=== PATIENT | female | born 1930 | race Caucasian/White ===

== ENCOUNTER 2017-01-03 17:04 | Observation (INO) ==
--- NOTE | 2017-01-03 17:50 | Emergency Department Note ---
Disposition Clinical Impression: UTI (urinary tract infection) Qualifiers: Urinary tract infection type: acute cystitis Hematuria presence: with hematuria Qualified Code(s): N30.01 - Acute cystitis with hematuria Disposition: Admitted As Inpatient Condition: Fair Referrals: Angel Lange CNP [Primary Care Provider] - Forms: ED Satisfaction Letter General Adult HPI - General Chief complaint: ED Urogenital-Female Stated complaint: UTI, DIZZINESS, SHORTNESS OF BREATH Time Seen by Provider: 01/03/17 17:22 Source: patient, family Mode of arrival: private vehicle Limitations: no limitations Nursing Notes Reviewed: Yes Vital Signs Reviewed: Yes - History of Present Illness HPI Narrative: He presents to the ED with complaint of UTI but is not getting better along with dizziness and shortness of breath. Patient daughter reports that patient gets frequent UTIs, at least once monthly and is on Bactrim prophylaxis. She was diagnosed with a UTI on December 17 and finished a 10 day course of Keflex. She felt better for a few days but then started feeling bad again over the weekend. She received a Rocephin shot yesterday at her PCPs office but is still not feeling better. Daughter states dizziness is always her first symptom when she has a UTI although she has had a history of dizziness in the past that has been investigated by ENT and other specialists with no definitive diagnosis.. Dizziness has been going on for the past 5 days. She also reports feeling short of breath for the past week but denies any congestion, sore throat or runny nose. She does have a chronic cough. Daughter states she has been diagnosed with chronic bronchitis but is not on any medications for it. She complains of some right flank pain. Denies any abdominal pain. No fever she does report chills. She reports urinary frequency but no dysuria. She does have some urinary incontinence. No nausea or vomiting. She does have chronic constipation and her last bowel movement was 3 days ago which is not unusual for her. Daughter states she has been in bed all weekend and has not been eating or drinking as much. She has been followed by Dr. Rodriguez of urology regarding her recurrent UTIs. Pain Scale: 0 - Related Data Home Medications Medication Instructions Recorded Confirmed Citalopram [CeleXA] 20 mg PO DAILY 12/22/14 01/03/17 Cyanocobalamin (B-12) [Vitamin B12] 0 mcg SQ QMONTH 12/22/14 01/03/17 Docusate [Colace] 100 mg PO DAILY 12/22/14 01/03/17 Pravastatin Sodium [Pravachol] 20 mg PO DAILY 12/22/14 01/03/17 Sulfamethoxazole/Trimeth DS 1 each PO DAILY 12/22/14 01/03/17 [Bactrim DS] Tolterodine LA (24 HR) [Detrol LA] 4 mg PO DAILY 12/22/14 01/03/17 Rivastigmine Tartrate (oral) 1.5 mg PO BID 01/03/17 01/03/17 [Exelon] amLODIPine [Norvasc] 5 mg PO DAILY 01/03/17 01/03/17 Allergies Allergy/AdvReac Type Severity Reaction Status Date / Time alcohol Allergy Swelling Verified 01/03/17 19:54 of Lip/Tongue/Throat ciprofloxacin [From Cipro] Allergy Hives Verified 01/03/17 19:54 morphine Allergy Rash Verified 01/03/17 19:54 nitrofurantoin Allergy Confusion Verified 01/03/17 19:54 [From Macrobid] Penicillins Allergy Anaphylaxis Verified 01/03/17 19:54 Constitutional: Reports: chills. Denies: fever, weakness, weight change Eyes: Denies: eye pain, eye discharge, vision change ENT ED: Denies: ear pain, throat pain, dental pain, hearing loss, epistaxis, congestion, dysphagia Cardiovascular: Denies: chest pain, palpitations, dyspnea on exertion, edema, syncope Respiratory: Reports: as per HPI (chronic), cough. Denies: dyspnea, wheezes, hemoptysis, stridor Gastrointestinal: Reports: constipation (chronic). Denies: abdominal pain, nausea, vomiting, diarrhea, hematemesis, melena, hematochezia Genitourinary: Reports: frequency. Denies: urgency, dysuria, hematuria, discharge Musculoskeletal: Denies: back pain, neck pain, arthralgia, myalgia Integumentary: Denies: rash, abrasion, lesions Neurological: Reports: as per HPI. Denies: headache, weakness, numbness, paresthesias, confusion, abnormal gait, vertigo Psychiatric: Denies: anxiety, depression, suicidal thoughts, homicidal thoughts , auditory hallucinations, visual hallucinations Endocrine: Denies: fatigue Hematological/Lymphatic: Denies: easy bleeding, easy bruising Allergic/Immunologic: Denies: facial swelling, urticaria Past Medical History - Past Medical History Medical history: Reports: hyperlipidemia, hypertension Surgical history: Reports: appendectomy, hysterectomy, knee replacement, orthopedic, other Psychiatric history: Reports: depression BIOINFORMATICS PROGRAMMER history: Reports: non-contributory - Social History Smoking Status: Never smoker Smokeless Tobacco Status: No Alcohol use: Reports: none Drug use: Reports: none Physical Exam - General Limitations: no limitations General appearance: alert, in no apparent distress - Head Head exam: atraumatic, normocephalic, normal inspection - Eye Eye exam: Present: normal appearance, PERRL, EOMI - ENT ENT exam: normal exam, normal oropharynx, mucous membranes dry - Neck Neck exam: Present: normal inspection, full ROM, trachea midline - Chest Chest inspection: Present: normal inspection, symmetric chest wall rise - Respiratory Respiratory exam: Present: normal lung sounds bilaterally. Absent: respiratory distress, wheezes - Cardiovascular Cardiovascular exam: Present: regular rate, normal rhythm, normal heart sounds - Abdominal Exam Abdominal exam: Present: soft, Non-Tender. Absent: tenderness, distention, guarding, rebound, rigidity - Extremities Exam Extremities exam: Present: normal inspection, full ROM. Absent: tenderness, pedal edema - Back Exam Back exam: Present: normal inspection, full ROM, CVA tenderness (R), CVA tenderness (L). Absent: tenderness - Neurological Exam Neurological exam: Present: alert, oriented X3 - Psychiatric Psychiatric exam: Present: normal affect, normal mood - Skin Skin exam: Present: warm, dry, intact, normal color Course Course Narrative: Presents to the ED complaining of dizziness, shortness of breath and generally not feeling well despite being treated with 2 types of outpatient antibiotics for a recent UTI. Will check labs and UA to determine if her infection has cleared and look for other sources of her symptoms. We will also check chest x- ray given her report of shortness of breath although she has clear lung sounds and is not in any respiratory distress. - Reevaluation(s) Reevaluation #1: Chest x-ray was normal. BMP shows chronic anemia but no leukocytosis. Creatinine is slightly elevated from baseline. Urinalysis does still show evidence of UTI. Review of urine cultures in the past show consistently Escherichia coli with very few resistances but patient has multiple antibiotic allergies. Given that she has failed outpatient antibiotic treatment SSU benefit from admission for gentle hydration and IV antibiotics. Patient and daughter are in agreement with this plan. Will contact the physician conference director for her PCP. Reevaluation #2: I spoke to Dr. Gan, physician on-call for patient's PCP who has agreed to admit the patient. She did requested a BNP and EKG be performed given patient' s shortness of breath although she has no history of congestive heart failure. EKG shows a sinus rhythm with no acute changes. Vital Signs Temperature 97.0 F L 01/03/17 17:07 Pulse Rate 77 01/03/17 17:07 Respiratory Rate 16 01/03/17 17:07 Blood Pressure 143/64 01/03/17 17:07 O2 Sat by Pulse Oximetry 95 01/03/17 17:07 Temperature 97.0 F L 01/03/17 17:07 Pulse Rate 77 01/03/17 17:07 Respiratory Rate 16 01/03/17 17:07 Blood Pressure 143/64 01/03/17 17:07 O2 Sat by Pulse Oximetry 95 01/03/17 17:07 Oxygen Delivery Oxygen Delivery Room Air Medical Decision Making - Medical Records Medical records reviewed: Yes I reviewed the patient's medical records. - Lab Data Lab results reviewed: Yes I reviewed the patient's lab results. Result diagrams: 01/03/17 17:12 01/03/17 17:12 Lab Results 01/03/17 01/03/17 01/03/17 Range/Units 17:12 17:12 17:12 WBC 4.3 (4.3-11.1) K/mcL RBC 3.69 L (3.82-4.97) M/mcL Hgb 11.1 L (11.5-15.4) g/dL Hct 33.4 L (35.3-44.9) % MCV 90.5 (83.0-100.0) fL MCH 30.1 (28.0-33.3) pg MCHC 33.2 (31.6-35.5) g/dL RDW 12.7 (11.5-14.5) % Plt Count 172 (140-400) K/mcL MPV 9.1 L (9.4-12.4) fL Immature Gran % 0.5 (0-4) % Seg Neutrophils % 58.4 % Lymphocytes % 32.1 % Monocytes % 8.1 % Eosinophils % 0.7 % Basophils % 0.2 % Neutrophils # 2.5 (1.6-8.9) K/mcL Lymphocytes # 1.4 (0.6-4.6) K/mcL Monocytes # 0.4 (0.0-1.3) K/mcL Eosinophils # 0.0 (0.0-0.6) K/mcL Basophils # 0.0 (0.0-0.2) K/mcL Sodium 133 L (136-145) mEq/L Potassium 4.8 H (3.5-4.5) mEq/L Chloride 102 (98-109) mEq/L Carbon Dioxide 21 (19-29) mEq/L BUN 19 (7-20) mg/dL Creatinine 1.28 H (0.57-1.11) mg/dL Est GFR ( Amer) 48 L (> 60) Est GFR (Non-Af Amer) 39 L (> 60) BUN/Creatinine Ratio 15 (6-26) Glucose 128 H (70-99) mg/dL Calculated Osmolality 280 (280-300) Calcium 9.0 (8.6-10.8) mg/dL Urine Color Yellow (Yellow) Urine Clarity Clear (Clear) Urine pH 6.5 (5.0-8.0) pH Units Ur Specific [place] 1.015 (1.010-1.025) Urine Protein Negative (Neg-Trace) mg/dL Urine Glucose (UA) Normal (Normal) mg/dL Urine Ketones Negative (Negative) mg/dL Urine Blood Negative (Negative) Urine Nitrite Negative (Negative) Urine Bilirubin Negative (Negative) Urine Urobilinogen Normal (Normal) mg/dL Ur Leukocyte Esterase Moderate H (Negative) Urine Microscopic WBC 15-30 H (0-3) per hpf Ur Squamous Epith Cells Many H (None-Few) per lpf Urine Bacteria Moderate H (None-Few) per hpf Ur Culture Indicated? YES A (NO) - Radiology Data Radiology results reviewed: Yes I reviewed the patient's radiology results. ITS Impressions Chest X-Ray 01/03/17 17:50 IMPRESSION: No acute cardiopulmonary abnormality. D/ / Walt Pina MD / Walt Pina MD Interpreting Provider: Walt Pina MD - EKG Data EKG #1 EKG shows normal: sinus rhythm (with baseline artifact) Rate: normal Rhythm: NSR Casanova/QRS: normal Interpretation: no acute changes
[2017-01-03 17:56] LABS: Basophils % 0.2 %; Eosinophils % 0.7 %; Hematocrit 33.4 % (35.3-44.9); Hemoglobin 11.1 g/dL (11.5-15.4); Immature Granulocytes % 0.5 % (0-4); Lymphocytes # 1.4 K/mcL (0.6-4.6); Lymphocytes % 32.1 %; Mean Corpuscular HGB Conc 33.2 g/dL (31.6-35.5); Mean Corpuscular Hemoglobin 30.1 pg (28.0-33.3); Mean Corpuscular Volume 90.5 fL (83.0-100.0); Mean Platelet Volume 9.1 fL (9.4-12.4); Monocytes # 0.4 K/mcL (0.0-1.3); Monocytes % 8.1 %; Neutrophils # 2.5 K/mcL (1.6-8.9); Platelet Count 172 K/mcL (140-400); Red Blood Count 3.69 M/mcL (3.82-4.97); Red Cell Distribution Width 12.7 % (11.5-14.5); Segmented Neutrophils % 58.4 %
[2017-01-03 17:57] LABS: Bilirubin,Urine Negative (Negative); Blood,Urine Negative (Negative); Clarity,Urine Clear (Clear); Color,Urine Yellow (Yellow); Glucose,Urine (UA) Normal (Normal); Ketones,Urine Negative (Negative); Leukocyte Esterase,Urine Moderate (Negative); Nitrite,Urine Negative (Negative); PH,Urine 6.5 pH Units (5.0-8.0); Protein,Urine Negative (Neg-Trace); Specific Gravity,Urine 1.015 (1.010-1.025); Urobilinogen,Urine Normal (Normal)
[2017-01-03 18:04] LABS: Squamous Epithelial Cell,Urine Many per lpf (None-Few)
[2017-01-03 18:05] LABS: Bacteria,Urine Moderate per hpf (None-Few); WBC,Urine 15-30 per hpf (0-3)
[2017-01-03 18:06] LABS: Potassium 4.8 mEq/L (3.5-4.5)
[2017-01-03] MEDS ORDERED: cefTRIAXone 1,000 MG in Water for inj. (sterile) 10 ML IVP ONE (19:06)
[2017-01-03] MEDS ORDERED: 0.9 % Sodium Chloride 1,000 ML IVC SCH (19:15)
--- NOTE | 2017-01-03 19:55 | Internal Med History&Physical ---
Date of Encounter: 01/03/17 Time of Encounter: 21:56 Assessment and Plan (1) UTI (urinary tract infection) Current visit: Yes Status: Acute She has been on Keflex as an outpatient her urine culture is sensitive to ceftriaxone yesterday she received 1 dose of ceftriaxone IM. We will continue that since her urine is sensitive to that we will add IV fluids to help rehydrate her and hopefully that will help improve things. She has not been out of bed in the past 3 days we will consult PT and OT. Qualifiers: Urinary tract infection type: acute cystitis Hematuria presence: with hematuria Qualified Code(s): N30.01 - Acute cystitis with hematuria (2) HTN (hypertension) Current visit: Yes Status: Acute We will continue her home medications. Blood pressure stable in the ER Qualifiers: Hypertension type: essential hypertension Qualified Code(s): I10 - Essential (primary) hypertension (3) Mixed hyperlipidemia Current visit: Yes Status: Acute We will continue her home medications (4) DM2 (diabetes mellitus, type 2) Current visit: Yes Status: Acute Is not take medications at home we will do blood glucose checks and sliding scale insulin as needed Qualifiers: Diabetes mellitus complication status: without complication Diabetes mellitus senior care insulin use: with terminal manager use Qualified Code(s): E11.9 - Type 2 diabetes mellitus without complications; Z79.4 - continuous churn buttermaker (current) use of insulin; Z79.4 - continuous churn buttermaker (current) use of insulin; Z79.4 - long-term ( current) use of insulin; Z79.4 - continuous churn buttermaker (current) use of insulin (5) COPD (chronic obstructive pulmonary disease) Current visit: Yes Status: Acute Qualifiers: COPD type: unspecified COPD Qualified Code(s): J44.9 - Chronic obstructive pulmonary disease, unspecified (6) Cognitive impairment Current visit: Yes Status: Acute (7) Sleep apnea Current visit: Yes Status: Acute Qualifiers: Sleep apnea type: obstructive Qualified Code(s): G47.33 - Obstructive sleep apnea (adult) (pediatric) (8) Hyponatremia Current visit: Yes Status: Acute Likely due to dehydration we will continue IV fluids we will repeat labs in the morning. Internal Medicine - H&P: HPI Chief complaint: weakness, uti Admitted From: Home History of present illness: Ms. Alfonso is a 86 year old female Who came from home with a chief complaint of UTI and weakness. She had a culture done on 1028 that was Escherichia coli and sensitive to Keflex she had been on that she had been not feeling up to par she was started on ceftriaxone yesterday she was admitted through the ER she has multiple allergies to multiple medications will check her repeat urine culture blood cultures and continue with the ceftriaxone and IV fluids for now. She has not been out of bed in the past 3 days she has been dizzy but she has not had any falls in over a month. She has not been eating well she has not been drinking. She has been feeling hot but has not run a fever her blood pressures at home are running 120s to 130s over 60s to 70s and her heart rates been in 60-70. She does not take her blood sugar very often at home. She occasionally will have a headache but does not have a headache now. She always has urinary incontinence but has not had any dysuria or hematuria. She does have frequency she has a rash of her inguinal area. She occasionally has constipation her last stool was 3 days ago. Discussed CODE STATUS with her daughter may present in the room. She states she does not want to be resuscitated. 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, sleep anea will not wear cpap, esophageal dysmotility) Psychiatric history: depression - Past Surgical History Surgical History: appendectomy, cataract (2005), cholecystectomy, hysterectomy, knee replacement (bilateral), orthopedic, other (02/2012 left shoulder replacement, 02/2012 egd, ), other (hysterectomy, partial bowel removal, dental surgery) - Social History Smoking Status: Never smoker Smokeless Tobacco Status: No Alcohol use: none Drug use: none - Family History Father Living Status: Age at : 83 Hx Family Cancer: Yes (skin and lung) Mother Living Status: Age at : 93 Cause of : old age Internal Medicine - H&P: Meds Citalopram [CeleXA] 20 mg PO DAILY 12/22/14 [History] Cyanocobalamin (B-12) [Vitamin B12] 0 mcg SQ QMONTH 12/22/14 [History] Docusate [Colace] 100 mg PO DAILY 12/22/14 [History] Pravastatin Sodium [Pravachol] 20 mg PO DAILY 12/22/14 [History] Sulfamethoxazole/Trimeth DS [Bactrim DS] 1 each PO DAILY 12/22/14 [History] Tolterodine LA (24 HR) [Detrol LA] 4 mg PO DAILY 12/22/14 [History] Rivastigmine Tartrate (oral) [Exelon] 1.5 mg PO BID 01/03/17 [History] amLODIPine [Norvasc] 5 mg PO DAILY 01/03/17 [History] 3 Allergy/AdvReac Type Severity Reaction Status Date / Time alcohol Allergy Swelling Verified 01/03/17 19:54 of Lip/Tongue/Throat ciprofloxacin [From Cipro] Allergy Hives Verified 01/03/17 19:54 morphine Allergy Rash Verified 01/03/17 19:54 nitrofurantoin Allergy Confusion Verified 01/03/17 19:54 [From Macrobid] Penicillins Allergy Anaphylaxis Verified 01/03/17 19:54 All Systems PM: A 10-system review of systems was performed and is negative for pertinent findings except as documented above in the HPI. - Constitutional Constitutional: anorexia, fatigue, falls, no fever(s) - EENT Eyes: change in vision - Cardiovascular Cardiovascular ROS IM: dyspnea, no chest pain, no palpitations, no syncope - Respiratory Respiratory: cough, dyspnea, no wheezing - Gastrointestinal Gastrointestinal: constipation, no abdominal pain, no cramping, no diarrhea, no hematochezia, no melena, no nausea - Genitourinary Genitourinary: urinary frequency, urinary incontinence, no dysuria - Integumentary Integumentary IM: rash - Neurological Neurological ROS: abnormal gait - Psychiatric Psychiatric: confusion, no behavioral changes - Endocrine Endocrine IM: fatigue (not out of bed the past 3 days) - Constitutional Vitals: Temp Pulse Resp BP Pulse Ox 97.0 F L 77 16 143/64 95 01/03/17 17:07 01/03/17 17:07 01/03/17 17:07 01/03/17 17:07 01/03/17 17:07 Internal Med - H&P Results - Labs CBC & Chem 7: 01/03/17 17:12 01/03/17 17:12 Labs: Short CBC 01/03/17 Range/Units 17:12 WBC 4.3 (4.3-11.1) K/mcL Hgb 11.1 L (11.5-15.4) g/dL Hct 33.4 L (35.3-44.9) % Plt Count 172 (140-400) K/mcL Neutrophils # 2.5 (1.6-8.9) K/mcL BMP 01/03/17 17:12 Sodium 133 L Potassium 4.8 H Chloride 102 Carbon Dioxide 21 BUN 19 Creatinine 1.28 H Glucose 128 H Calcium 9.0 Urine 01/03/17 Range/Units 17:12 Urine Color Yellow (Yellow) Urine Clarity Clear (Clear) Urine pH 6.5 (5.0-8.0) pH Units Ur Specific [place] 1.015 (1.010-1.025) Urine Protein Negative (Neg-Trace) mg/dL Urine Glucose (UA) Normal (Normal) mg/dL - Impressions ITS Impressions Chest X-Ray 01/03/17 17:50 IMPRESSION: No acute cardiopulmonary abnormality. D/ / Walt Pina MD / Walt Pina MD Interpreting Provider: Walt Pina MD
[2017-01-03] MEDS ORDERED: 0.9 % Sodium Chloride Mini Bag 100 ML ONE ×2 (19:57→23:43)
[2017-01-03] MEDS ORDERED: Naloxone 0.4 MG/ML INJ IVP PRN ×2 (20:01→23:43)
[2017-01-03] MEDS ORDERED: Acetaminophen 325 MG TABLET PO PRN ×2 (20:01→23:43)
[2017-01-03] MEDS ORDERED: Nystatin Cream 15 GM TUBE TP SCH (22:00)
[2017-01-03] MEDS ORDERED: RIVASTIGMINE TARTRATE 1.5 MG PO SCH (23:43)
[2017-01-04] MEDS: 0.9 % Sodium Chloride 1,000 ML IVC SCH ×3 (01:43→21:15)
[2017-01-04] MEDS: *HR* Enoxaparin 40 MG/0.4 ML SYRINGE SQ SCH (05:29)
[2017-01-04 05:44] LABS: Basophils % 0.3 %; Eosinophils # 0.1 K/mcL (0.0-0.6); Eosinophils % 2.1 %; Hematocrit 31.5 % (35.3-44.9); Hemoglobin 10.4 g/dL (11.5-15.4); Immature Granulocytes % 0.3 % (0-4); Lymphocytes % 29.6 %; Mean Corpuscular Hemoglobin 30.1 pg (28.0-33.3); Mean Corpuscular Volume 91.3 fL (83.0-100.0); Monocytes # 0.4 K/mcL (0.0-1.3); Monocytes % 9.6 %; Platelet Count 148 K/mcL (140-400); Red Blood Count 3.45 M/mcL (3.82-4.97); Red Cell Distribution Width 12.8 % (11.5-14.5); Segmented Neutrophils % 58.1 %
[2017-01-04 05:51] LABS: Lymphocytes # 1.2 K/mcL (0.6-4.6); Neutrophils # 2.3 K/mcL (1.6-8.9)
[2017-01-04 05:55] LABS: BUN/Creatinine Ratio 14 (6-26); Blood Urea Nitrogen 13 mg/dL (7-20); Calcium 8.6 mg/dL (8.6-10.8); Carbon Dioxide 22 mEq/L (19-29); Chloride 108 mEq/L (98-109); Glucose 88 mg/dL (70-99); Osmolality,Calculated 284 (280-300); Potassium 4.3 mEq/L (3.5-4.5); Sodium 137 mEq/L (136-145); eGFR For African Americans > 60 (> 60); eGFR For Non-African Americans 59 (> 60)
[2017-01-04] MEDS ORDERED: *HR* Enoxaparin 40 MG/0.4 ML SYRINGE SQ SCH (06:00)
[2017-01-04] MEDS: Nystatin Cream 15 GM TUBE TP SCH ×4 (08:48→21:22)
[2017-01-04] MEDS: amLODIPine 5 MG TABLET PO SCH (08:49)
[2017-01-04] MEDS: Rivastigmine Tartrate (oral) 1.5 MG CAPSULE PO SCH ×2 (09:06→21:20)
--- NOTE | 2017-01-04 13:10 | Electrocardiograph Report ---
[place] [id number] Test Date: 2017-01-03 Pat Name: Varsha Alfonso Department: 2000 Room: 111 Gender: F Steel Placer: : 1930 Requested By: Carla Pimentel Order Number: [id number] Reading MD: Bg Stapleton MD Measurements Intervals [place] Rate: 80 P: -80 IL: 153 QRS: -35 QRSD: 94 T: 14 QT: 395 QTc: 430 Interpretive Statements SINUS RHYTHM BASELINE ARTIFACT Electronically Signed On 01-04-2017 13:08:58 EST by Bg Stapleton MD
--- NOTE | 2017-01-04 14:03 | Internal Med Progress Note ---
Date of Encounter: 01/04/17 Time of Encounter: 14:30 - Assessment and plan (1) UTI (urinary tract infection) Current Visit: Yes Status: Acute Assessment and plan: Is currently on Rocephin urine culture and blood cultures are pending. She is afebrile her white count is depressed currently. We will continue to follow. Qualifiers: Urinary tract infection type: acute cystitis Hematuria presence: with hematuria Qualified Code(s): N30.01 - Acute cystitis with hematuria (2) HTN (hypertension) Current Visit: Yes Status: Acute Assessment and plan: Get a little bit low last night that has gotten better with IV fluids as well as likely secondary to dehydration Qualifiers: Hypertension type: essential hypertension Qualified Code(s): I10 - Essential (primary) hypertension (3) Mixed hyperlipidemia Current Visit: Yes Status: Acute Assessment and plan: Continue home medication (4) DM2 (diabetes mellitus, type 2) Current Visit: Yes Status: Acute Assessment and plan: Sugars have not been too far out of range. We will continue to follow Qualifiers: Diabetes mellitus complication status: without complication Diabetes mellitus buttermaker helper insulin use: with assisted use Qualified Code(s): E11.9 - Type 2 diabetes mellitus without complications; Z79.4 - nursing home (current) use of insulin; Z79.4 - nursing home (current) use of insulin; Z79.4 - exterminator helper termite ( current) use of insulin; Z79.4 - exterminator helper termite (current) use of insulin (5) COPD (chronic obstructive pulmonary disease) Current Visit: Yes Status: Acute Qualifiers: COPD type: unspecified COPD Qualified Code(s): J44.9 - Chronic obstructive pulmonary disease, unspecified (6) Cognitive impairment Current Visit: Yes Status: Acute Assessment and plan: Has been at baseline she does not know the name of her medicine she is very pleasant but she does get easily confused. (7) Sleep apnea Current Visit: Yes Status: Acute Assessment and plan: She refuses to wear CPAP oxygen she desats at night she did have home oxygen but sent back to the company. Qualifiers: Sleep apnea type: obstructive Qualified Code(s): G47.33 - Obstructive sleep apnea (adult) (pediatric) (8) Hyponatremia Current Visit: Yes Status: Acute Assessment and plan: Secondary to dehydration has improved with IV hydration (9) Acute renal injury Current Visit: Yes Status: Acute Assessment and plan: Likely due to dehydration due to decreased by mouth intake. Her creatinine and bun have improved with IV hydration. Continue to follow (10) Frequent falls Current Visit: Yes Status: Acute Assessment and plan: she is home bound will consult home health for d/c - Subjective Interval history: feeling better. still a little unsteady and dizzy, but has improved with ivf hydration. still with oquendo but better. occ sob but better. no n.v ate her breakfast. no cp - Constitutional Vitals: Temp Pulse Resp BP Pulse Ox 97.9 F 60 18 169/70 95 01/04/17 08:00 01/04/17 08:00 01/04/17 08:00 01/04/17 08:00 01/04/17 08:00 General appearance: Present: pleasant, no acute distress - Head Head exam: Present: atraumatic, normocephalic - Neck Neck exam general surgery: Present: normal inspection, supple. Absent: lymphadenopathy - Respiratory Respiratory exam: Present: CTAB - Cardiovascular Cardiovascular exam: Present: RRR, +S1, +S2 - GI/Abdominal GI/Abdominal exam: Present: normal bowel sounds, soft, no peritoneal signs - Extremities Exam Extremities exam: Present: normal capillary refill, warm. Absent: pedal edema - Skin Skin exam: Present: dry, warm. Absent: rash Internal Medicine: Result - Labs CBC & Chem 7: 01/04/17 05:20 01/04/17 05:20 Labs: Short CBC 01/04/17 Range/Units 05:20 WBC 3.9 L (4.3-11.1) K/mcL Hgb 10.4 L (11.5-15.4) g/dL Hct 31.5 L (35.3-44.9) % Plt Count 148 (140-400) K/mcL Neutrophils # 2.3 (1.6-8.9) K/mcL BMP 01/04/17 05:20 Sodium 137 Potassium 4.3 Chloride 108 Carbon Dioxide 22 BUN 13 Creatinine 0.90 Glucose 88 Calcium 8.6 - VTE Reasons for not Prescribing Prophylaxis: Treatment not Indicated - Low risk for VTE Consult Discharge Plan - Plan Referrals: Angel Lange CNP [Primary Care Provider] -
--- NOTE | 2017-01-04 14:41 | Physician Discharge Referral ---
Home Health/Hosp Referral Info Transfer to: Home Health - Diagnosis (1) UTI (urinary tract infection) Priority: Primary Status: Acute (2) HTN (hypertension) Priority: Secondary Status: Acute (3) Mixed hyperlipidemia Priority: Secondary Status: Acute (4) DM2 (diabetes mellitus, type 2) Priority: Secondary Status: Acute (5) COPD (chronic obstructive pulmonary disease) Priority: Secondary Status: Acute (6) Cognitive impairment Priority: Secondary Status: Acute (7) Sleep apnea Priority: Secondary Status: Acute (8) Hyponatremia Priority: Secondary Status: Acute (9) Acute renal injury Priority: Secondary Status: Acute (10) Frequent falls Priority: Secondary Status: Acute - Respiratory Orders Smoking Cessation: Smoking cessation has been advised. For more information, call the [employer] Tobacco Quit Line at 7-552-CKQE-NOW. - Diet/Nutrition Diet/Nutrition Orders: No Added Salt (SHER), No Concentrated Sweets - Activity Activity Orders: Up ad kamaljit - Services Needed Following services are medically necessary services: Nursing, Home Health Aide, Physical Therapy, Occupational Therapy - Transfer Medications Home Medications: Citalopram [CeleXA] 20 mg PO DAILY 12/22/14 [History] Cyanocobalamin (B-12) [Vitamin B12] 0 mcg SQ QMONTH 12/22/14 [History] Docusate [Colace] 100 mg PO DAILY 12/22/14 [History] Pravastatin Sodium [Pravachol] 20 mg PO DAILY 12/22/14 [History] Sulfamethoxazole/Trimeth DS [Bactrim DS] 1 each PO DAILY 12/22/14 [History] Tolterodine LA (24 HR) [Detrol LA] 4 mg PO DAILY 12/22/14 [History] Rivastigmine Tartrate (oral) [Exelon] 1.5 mg PO BID 01/03/17 [History] amLODIPine [Norvasc] 5 mg PO DAILY 01/03/17 [History] Allergies/Adverse Reactions: 3 Allergy/AdvReac Type Severity Reaction Status Date / Time alcohol Allergy Swelling Verified 01/03/17 19:54 of Lip/Tongue/Throat ciprofloxacin [From Cipro] Allergy Hives Verified 01/03/17 19:54 morphine Allergy Rash Verified 01/03/17 19:54 nitrofurantoin Allergy Confusion Verified 01/03/17 19:54 [From Macrobid] Penicillins Allergy Anaphylaxis Verified 01/03/17 19:54 Certification: Further, I certify that my clinical findings support that this patient is homebound (i.e. absences from home require considerable and taxing effort and are for medical reasons or denominational services or infrequently or short duration when for other reasons) because: she is home bound does not drive due to cognitive deficits and frequent falls Homebound Reason: Patient requires assistance of a person or device to safely leave home (cannot drive due to falls and cognitive deficits), Altered mental status requiring supervision when leaving home (due to cognitive deficits) Attestation: My signature below is to certify that this patient is under my care and that I, or nurse practitioner, or a physician's elementary assistant principal working with me, has a face-to -face encounter with this patient. on 01/04/17
[2017-01-04] MEDS: cefTRIAXone 1,000 MG in Water for inj. (sterile) 10 ML IVP SCH (14:47)
[2017-01-05 05:25] LABS: Basophils % 0.3 %; Eosinophils # 0.1 K/mcL (0.0-0.6); Eosinophils % 2.9 %; Hematocrit 30.6 % (35.3-44.9); Hemoglobin 10.1 g/dL (11.5-15.4); Immature Granulocytes % 0.5 % (0-4); Lymphocytes # 0.9 K/mcL (0.6-4.6); Lymphocytes % 24.1 %; Mean Corpuscular Hemoglobin 30.1 pg (28.0-33.3); Mean Corpuscular Volume 91.3 fL (83.0-100.0); Mean Platelet Volume 9.1 fL (9.4-12.4); Monocytes # 0.4 K/mcL (0.0-1.3); Monocytes % 10.9 %; Neutrophils # 2.3 K/mcL (1.6-8.9); Platelet Count 139 K/mcL (140-400); Red Blood Count 3.35 M/mcL (3.82-4.97); Red Cell Distribution Width 12.7 % (11.5-14.5); Segmented Neutrophils % 61.3 %
[2017-01-05] MEDS: *HR* Enoxaparin 40 MG/0.4 ML SYRINGE SQ SCH (05:26)
[2017-01-05 05:40] LABS: BUN/Creatinine Ratio 11 (6-26); Blood Urea Nitrogen 9 mg/dL (7-20); Calcium 8.6 mg/dL (8.6-10.8); Carbon Dioxide 20 mEq/L (19-29); Chloride 109 mEq/L (98-109); Glucose 113 mg/dL (70-99); Osmolality,Calculated 283 (280-300); Potassium 3.9 mEq/L (3.5-4.5); Sodium 137 mEq/L (136-145); eGFR For African Americans > 60 (> 60); eGFR For Non-African Americans > 60 (> 60)
[2017-01-05] MEDS: amLODIPine 5 MG TABLET PO SCH (09:14)
[2017-01-05] MEDS: 0.9 % Sodium Chloride 1,000 ML IVC SCH (09:18)
[2017-01-05] MEDS: Rivastigmine Tartrate (oral) 1.5 MG CAPSULE PO SCH (09:18)
[2017-01-05] MEDS: Nystatin Cream 15 GM TUBE TP SCH ×2 (09:19→15:36)
--- NOTE | 2017-01-05 12:11 | Discharge Summary ---
Date of Encounter: 01/05/17 Time of Encounter: 12:20 - Discharge Diagnosis (1) UTI (urinary tract infection) Priority: Primary Status: Acute Comments: her urine and blood cultures did not grow anything. she finished the keflex at home. will stop the bactrim that she takes daily since this uti was resistent to the bactrim Qualifiers: Urinary tract infection type: acute cystitis Hematuria presence: with hematuria Qualified Code(s): N30.01 - Acute cystitis with hematuria (2) HTN (hypertension) Priority: Secondary Status: Acute Comments: has been stable to high Qualifiers: Hypertension type: essential hypertension Qualified Code(s): I10 - Essential (primary) hypertension (3) Mixed hyperlipidemia Priority: Secondary Status: Acute Comments: will continue home medication (4) DM2 (diabetes mellitus, type 2) Priority: Secondary Status: Acute Comments: diet controlled Qualifiers: Diabetes mellitus complication status: without complication Diabetes mellitus watermelon inspector insulin use: with residential use Qualified Code(s): E11.9 - Type 2 diabetes mellitus without complications; Z79.4 - joint terminal attack controller (current) use of insulin; Z79.4 - senior care (current) use of insulin; Z79.4 - joint terminal attack controller ( current) use of insulin; Z79.4 - joint terminal attack controller (current) use of insulin (5) COPD (chronic obstructive pulmonary disease) Priority: Secondary Status: Acute Comments: has been stable Qualifiers: COPD type: unspecified COPD Qualified Code(s): J44.9 - Chronic obstructive pulmonary disease, unspecified (6) Cognitive impairment Priority: Secondary Status: Acute (7) Sleep apnea Priority: Secondary Status: Acute Qualifiers: Sleep apnea type: obstructive Qualified Code(s): G47.33 - Obstructive sleep apnea (adult) (pediatric) (8) Hyponatremia Priority: Secondary Status: Acute Comments: resolved with the ivf. due to dehydration (9) Acute renal injury Priority: Secondary Status: Acute Comments: due to dehydration. resolved with the ivf (10) Frequent falls Priority: Secondary Status: Acute Comments: saw pt and ot will continue home health - Discharge Medications Prescriptions: Nystatin Cream [Mycostatin Cream] 1 appl TP QID #60 gm Home Medications: Citalopram [CeleXA] 20 mg PO DAILY 12/22/14 [History] Cyanocobalamin (B-12) [Vitamin B12] 0 mcg SQ QMONTH 12/22/14 [History] Docusate [Colace] 100 mg PO DAILY 12/22/14 [History] Pravastatin Sodium [Pravachol] 20 mg PO DAILY 12/22/14 [History] Tolterodine LA (24 HR) [Detrol LA] 4 mg PO DAILY 12/22/14 [History] Rivastigmine Tartrate (oral) [Exelon] 1.5 mg PO BID 01/03/17 [History] amLODIPine [Norvasc] 5 mg PO DAILY 01/03/17 [History] Nystatin Cream [Mycostatin Cream] 1 appl TP QID #60 gm 01/05/17 [Rx] Allergies/Adverse Reactions: 3 Allergy/AdvReac Type Severity Reaction Status Date / Time alcohol Allergy Swelling Verified 01/03/17 19:54 of Lip/Tongue/Throat ciprofloxacin [From Cipro] Allergy Hives Verified 01/03/17 19:54 morphine Allergy Rash Verified 01/03/17 19:54 nitrofurantoin Allergy Confusion Verified 01/03/17 19:54 [From Macrobid] Penicillins Allergy Anaphylaxis Verified 01/03/17 19:54 Date of admission: 01/03/17 20:14 Primary care physician: Angel Lange CNP Consults: 01/03/17 21:49 Consult to Occupational Therapy [CONS] Routine Comment: Evaluate, develop and implement POC Reason for Consult: falls Consult to Physical Therapy [CONS] Routine Comment: Evaluate, develop and implement POC Reason for Consult: falls 01/04/17 14:41 Consult to Voltage Regulator Assembler (W&C) [CONS] Routine Reason For Exam: Reason for SW Consult: home health rf Discharging clinician: Brie Felix Anticipated date of discharge: 01/05/17 - Patient Status Disposition: Home Health Service Condition: Fair Overall status at discharge: patient is progressing back to baseline - Discharge Instructions Instructions: Urinary Tract Infection in Women (DC), Diabetes Mellitus Type 2 in Adults (DC), Chronic Obstructive Pulmonary Disease (DC), Chronic Hypertension (DC) Follow Up With: Angel Lange CNP [Primary Care Provider] - Adelina Mckeon CNP [Advanced Practice Nurse] - () Trace Patel MD [Partnered Physician] - 01/11/17 1:30 pm - Diet and Activity Activity: ambulate only with your walker Interval History: She presented from home to the emergency room after she had been dizzy not eating she did not get out of bed for 3 days she had a UTI that was treated with Keflex that the cultures showed it was sensitive to Keflex as an outpatient. She failed outpatient treatment she had an elevated creatinine she had hyponatremia she received IV fluids her home blood pressure the first night she was here was low but did respond well to the IV fluids her dizziness got better she was eating well she was up and walking with physical therapy. She still had a hard time getting around so she was sent home with home health and home physical therapy she was discharged in stable condition she was instructed to follow-up in the office and appointment was made I discussed with her daughter Romana her condition. Also she had a UTI that was resistant to Bactrim and she was on Bactrim prophylaxis we stopped her Bactrim prophylaxis. She had some cognitive deficits she has a history of this ongoing for a while. No medications were changed for that during this admission Hospital course: Ms. Alfonso is a 86 year old female - Time Spent with Patient Total time spent providing and/or coordinating discharge services: - Constitutional Vitals: Temp Pulse Resp BP Pulse Ox 98.6 F 96 18 164/55 98 01/05/17 11:37 01/05/17 11:37 01/05/17 11:37 01/05/17 11:37 01/05/17 11:37 General appearance: Present: pleasant, no acute distress - Head Head exam: Present: atraumatic, normocephalic - Neck Neck exam general surgery: Present: lymphadenopathy, supple, trachea midline - Respiratory Respiratory exam: Present: CTAB - Cardiovascular Cardiovascular exam: Present: RRR, +S1, +S2 - GI/Abdominal GI/Abdominal exam: Present: normal bowel sounds, soft, no peritoneal signs. Absent: guarding, tenderness - Extremities Exam Extremities exam: Present: normal capillary refill, warm. Absent: mottling, pedal edema - Skin Skin exam: Present: dry, warm. Absent: rash - VTE Reasons for not Prescribing Prophylaxis: Treatment not Indicated - Low risk for VTE
[2017-01-05] MEDS: cefTRIAXone 1,000 MG in Water for inj. (sterile) 10 ML IVP SCH (15:27)
[2017-01-05 16:39] VITALS: BP 155/86
== END 2017-01-05 17:00 | disposition home health service (06) ==
LOC: INPGRE 17:04 → EMEROOGRE 17:04 → INPGRE 20:57
PROVIDERS: ADMIT Family Medicine; ATTEND Family Medicine

== ENCOUNTER 2018-04-17 06:40 | Inpatient (IN) ==
[2018-04-17] MEDS ORDERED: 0.9 % Sodium Chloride 1,000 ML IVC ONE ×3 (07:08→10:54)
--- NOTE | 2018-04-17 07:08 | Emergency Department Note ---
Disposition Clinical Impression: Influenza, UTI (urinary tract infection), Dehydration, Sepsis Disposition: Transfer Short-Term Hosp Condition: Serious Referrals: Adelina Mckeon DIRECTOR OF COLLECTIONS [Primary Care Provider] - Time of Disposition: 09:05 Altered Mental Status HPI - General Stated Complaint: metal status changes Time Seen by Provider: 04/17/18 06:55 Source: family Mode of arrival: EMS Limitations: no limitations Nursing Notes Reviewed: Yes Vital Signs Reviewed: Yes - History of Present Illness HPI Narrative: 87-year-old female presents today with altered mental status Family states a week ago patient was diagnosed with aspiration pneumonia. They state that she choked and then went stopped breathing. When she arrived to the hospital she was somewhere between 40 and 70%. Apparently she was not placed on BiPAP was placed on 4 L and was doing better but when she was transferred down to [facility] [place] her oxygen had D satted again and they intubated her. Patient is a DNR/DNI but they did not paperwork at the time and so they went as a full code. Patient was on the ventilator for approximately 1 day and treated for aspiration pneumonia in the ICU. She was on Rocephin and Flagyl in the hospital. She is extubated the next day and very agitated but following some commands and directable. Daughter who is primary caregiver is also a nurse at [employer]. She states that she was able to easily redirect her mom and would often stay there and help with that. She states when they when she went home they gave her Seroquel at night even though she just them not to. Apparently patient is very sensitive to any medications and was still washing out the medicines from the intubation and that plus the Seroquel has made her very confused. Patient stayed 3 days in the ICU and then the nurse asked to take her mom home because she that she can care for her at home as well as they were doing there. She has been doing breathing treatments at home getting her up m oving around. The second daughter came in and added as of yesterday evening she was alert and talking to them and able to get up and help transfer to the restroom etc. but today she is much more drowsy and unarousable. They are not sure if this is still related to the medication she was on last week. She went home on Flagyl by mouth but did not get it yesterday secondary to being unable to swallow pills. She also fell since she has been home and broke her elbow and is taking Tylenol for pain. She was unable to swallow any of the Tylenol, last couple of doses secondary to confusion. Daughter noted also that her urine is very dark but she has been trying to get her to drink lots of fluids. MD complaint: altered mental status - Related Data Home Medications Medication Instructions Recorded Confirmed Pravastatin Sodium [Pravachol] 20 mg PO HS 12/22/14 04/17/18 Cyclosporine [Restasis] 1 each OP BID 04/11/18 04/17/18 Escitalopram [Lexapro] 10 mg PO DAILY 04/11/18 04/17/18 Fluticasone Propionate Nasal 100 mcg NS DAILY 04/11/18 04/17/18 [Flonase] Rivastigmine Tartrate (oral) 1.5 mg PO BID 04/11/18 04/17/18 [Exelon] Cranberry 400 mg PO DAILY 04/12/18 04/17/18 Docusate Sodium [Dok] 100 mg PO HS 04/12/18 04/17/18 Guaifenesin [Cough Syrup] 100 mg PO Q4H PRN 04/12/18 04/17/18 Metoprolol XL (24 HR) Succ [Toprol 50 mg PO DAILY 04/12/18 04/17/18 Xl] Pantoprazole Sodium [Protonix] 20 mg PO DAILY 04/12/18 04/17/18 Allergies Allergy/AdvReac Type Severity Reaction Status Date / Time alcohol Allergy Swelling Verified 04/17/18 06:57 of Lip/Tongue/Throat ciprofloxacin [From Cipro] Allergy Hives Verified 04/17/18 06:57 morphine Allergy Rash Verified 04/17/18 06:57 nitrofurantoin Allergy Confusion Verified 04/17/18 06:57 [From Macrobid] Penicillins Allergy Anaphylaxis Verified 04/17/18 06:57 olanzapine [From Zyprexa] AdvReac Irritable Verified 04/17/18 06:57 Review of Systems: All other systems are negative except as noted/marked Chart generated with voice recognition software Nursing notes reviewed Old records reviewed Past Medical History - Past Medical History Attestation: Yes The following information was validated with the patient. Source: patient, old records reviewed, nursing notes reviewed Medical history: Reports: COPD, dementia, diabetes, hyperlipidemia, hyper tension, other Surgical history: Reports: appendectomy, cataract, cholecystectomy, hysterectomy, knee replacement, orthopedic, other, other Psychiatric history: Reports: depression DOOR SERVICEMAN history: Reports: non-contributory - Social History Smoking Status: Never smoker Smokeless Tobacco Status: No Alcohol use: Reports: none Drug use: Reports: none Physical Exam - General Limitations: altered mental status General appearance: in no apparent distress, lethargic - Head Head exam: atraumatic, normocephalic, normal inspection - Eye Eye exam: Present: normal appearance, PERRL, EOMI - ENT ENT exam: normal exam, normal oropharynx, mucous membranes dry, normal external ear exam - Neck Neck exam: Present: normal inspection, trachea midline - Chest Chest inspection: Present: normal inspection, symmetric chest wall rise. Absent: tenderness - Respiratory Respiratory exam: Present: normal lung sounds bilaterally - Cardiovascular Cardiovascular exam: Present: tachycardia, irregular rhythm - Abdominal Exam Abdominal exam: Present: soft, Non-Tender, normal bowel sounds. Absent: distention - Extremities Exam Extremities exam: Present: other (cap refill < 3 seconds bilateral upper extremities. RUE in splint 2/2 elbow fracture. Fingers ecchymotic from fall. patient moving all fingers, no edema noted. LUE fingers cool to touch, cap refill < 3 seconds) - Back Exam Back exam: Present: normal inspection, full ROM. Absent: tenderness - Neurological Exam Neurological exam: Present: other (unable to assess secondary to patient condition) - Psychiatric Psychiatric exam: Present: other (unable to assess secondary to patient condition) - Skin Skin exam: Present: warm, dry, intact, normal color, other (except as noted above) Course Vital Signs Temperature 98.1 F 04/17/18 07:04 Pulse Rate 128 04/17/18 07:04 Respiratory Rate 24 04/17/18 07:04 Blood Pressure 124/82 04/17/18 07:04 O2 Sat by Pulse Oximetry 74 04/17/18 07:04 Temperature 98.1 F 04/17/18 07:04 Pulse Rate 128 04/17/18 07:04 Respiratory Rate 20 04/17/18 08:11 Blood Pressure 124/82 04/17/18 07:04 O2 Sat by Pulse Oximetry 100 04/17/18 08:11 Oxygen Delivery Oxygen Delivery Non Rebreather Mask Altered Mental Status - MDM Narrative Medical decision making narrative: patient presetned with AMS. ABG does not show hypercarbia or hypoxia, which is reassuring. Ammonia and Lactic are normal. Urine shows UTI. I had already started triple abx therapy because of recent admission and intubation aspiration pneumonia, (cefepime, azithromycin, vancomycin). IV has been started and she is getting IV fluids. There is been a delay in her labs is difficult stick and having a difficult time obtaining her labwork. Family did not want me to do a femoral stick for blood if we could avoid it. Nursing is at bedside attempting to find a blood vessel that we will give them blood without blowing. I explained to the daughter that if this does not work out she may indeed need a femoral stick for labs. - Medical Records Medical records reviewed: Yes I reviewed the patient's medical records. - Lab Data Lab results reviewed: Yes I reviewed the patient's lab results. Lab Results 04/17/18 04/17/18 04/17/18 Range/Units 07:40 07:40 07:40 ABG pH (7.32-7.45) pH Units ABG pCO2 (35-45) mmHg ABG pO2 (85-104) mmHg ABG HCO3 (21-27) mEq/L ABG Total CO2 (20-26) mEq/L ABG O2 Saturation (95-98) % ABG Base Excess (-2 to 3) mEq/L Lactic Acid 1.3 (0.5-2.2) mmol/L Ammonia (16-53) mcmol/L Urine Color Brown (Yellow) Urine Clarity Clear (Clear) Urine pH 6.0 (5.0-8.0) pH Units Ur Specific Hodgen 1.020 (1.010-1.025) Urine Protein >=300 H (Neg-Trace) mg/dL Urine Glucose (UA) Normal (Normal) mg/dL Urine Ketones 15 H (Negative) mg/dL Urine Blood Trace-intact H (Negative) Urine Nitrite Positive A (Negative) Urine Bilirubin Small H (Negative) Urine Urobilinogen Normal (Normal) mg/dL Ur Leukocyte Esterase Trace H (Negative) Urine Microscopic RBC 0-3 (0-3) per hpf Urine Microscopic WBC 3-5 H (0-3) per hpf Ur Squamous Epith Cells Few (None-Few) per lpf Urine Bacteria Few (None-Few) per hpf Urine Yeast Many H (None Seen) per hpf Ur Culture Indicated? YES A (NO) Urine Opiates Screen Negative (Plnxiw=102) ng/mL Ur Barbiturates Screen Negative (Ouqpln=718) ng/mL Ur Phencyclidine Scrn Negative (Cutoff=25) ng/mL Ur Amphetamines Screen Negative (Emtfaq=5343) ng/mL U Benzodiazepines Scrn Positive H (Ywbbft=771) ng/mL Urine Cocaine Screen Negative (Cutoff= 300) ng/mL U Marijuana (THC) Screen Negative (Cutoff = 50) ng/mL Ur Drug Screen Interp See Below 04/17/18 04/17/18 Range/Units 07:58 08:00 ABG pH 7.45 (7.32-7.45) pH Units ABG pCO2 37 (35-45) mmHg ABG pO2 217 H (85-104) mmHg ABG HCO3 26 (21-27) mEq/L ABG Total CO2 27 H (20-26) mEq/L ABG O2 Saturation 100 H (95-98) % ABG Base Excess 2 (-2 to 3) mEq/L Lactic Acid (0.5-2.2) mmol/L Ammonia 36 (16-53) mcmol/L Urine Color (Yellow) Urine Clarity (Clear) Urine pH (5.0-8.0) pH Units Ur Specific Hodgen (1.010-1.025) Urine Protein (Neg-Trace) mg/dL Urine Glucose (UA) (Normal) mg/dL Urine Ketones (Negative) mg/dL Urine Blood (Negative) Urine Nitrite (Negative) Urine Bilirubin (Negative) Urine Urobilinogen (Normal) mg/dL Ur Leukocyte Esterase (Negative) Urine Microscopic RBC (0-3) per hpf Urine Microscopic WBC (0-3) per hpf Ur Squamous Epith Cells (None-Few) per lpf Urine Bacteria (None-Few) per hpf Urine Yeast (None Seen) per hpf Ur Culture Indicated? (NO) Urine Opiates Screen (Ealajm=525) ng/mL Ur Barbiturates Screen (Ihouse=493) ng/mL Ur Phencyclidine Scrn (Cutoff=25) ng/mL Ur Amphetamines Screen (Lxmfzm=0416) ng/mL U Benzodiazepines Scrn (Aynxiw=386) ng/mL Urine Cocaine Screen (Cutoff= 300) ng/mL U Marijuana (THC) Screen (Cutoff = 50) ng/mL Ur Drug Screen Interp - Radiology Data Radiology results reviewed: Yes I reviewed the patient's radiology results. CT/CT head/brain wo con IMPRESSION: No evidence of acute intracranial abnormality. D/ / Anthony Vyas MD / Anthony Vyas MD Interpreting Provider: Anthony Vyas MD EXAMINATION: SINGLE XRAY VIEW OF THE CHEST 04/17/2018 8:18 am COMPARISON: 04/10/2018. HISTORY: ORDERING SYSTEM PROVIDED HISTORY: altered mental status FINDINGS: Cardiac mediastinal contours are enlarged but unchanged. No focal consolidation is identified. No evidence of significant pleural effusion, or pneumothorax. Left shoulder prosthesis appears unremarkable. Chronic appearing deformity of the right proximal humerus. XR/XR chest 1V portable IMPRESSION: Enlarged cardiomediastinal silhouette appears unchanged. No focal consolidation, pneumothorax, or significant pleural effusion. D/ / William Salinas MD / William Salinas MD Interpreting Provider: William Salinas MD - EKG Data EKG attestation: Yes I reviewed and interpreted this EKG. EKG results narrative: EKG interpreted by myself as A. fib at a rate of 108 QTc of [address] elevation TPA Checklist - LKW: 3-4.5 hrs Add. Warnings/Precautions Patient/family understanding: The patient/family members have been counseled and understood the risk, benefit, and alternatives of treatment. S.B.A.RMisael - Molly.B.ARita Situation: Demographics, MOA Background: Presenting Complaint, Relevant PMH, Meds, & Allergies Assessment: Vital Signs, Course and respsone to treatment, Exam Concerns, Patient/Family Expectation, Pertinant Lab Results, Outstanding Labs Recommendation: Barrier(s) to disposition, Recommendation based on pending studies, treatments, or consults S.B.A.RMisael Report Given to: Dr Sidney Marquis Repor Time: 09:00
[2018-04-17] MEDS ORDERED: Azithromycin 500 MG in D5% in Water 250 ML IVPB STA (07:21)
[2018-04-17] MEDS ORDERED: Cefepime HCl 2,000 MG in 0.9 % Sodium Chloride Mini Bag 100 ML IVPB STA (07:21)
[2018-04-17 07:48] LABS: Bilirubin,Urine Small (Negative); Blood,Urine Trace-intact (Negative); Clarity,Urine Clear (Clear); Glucose,Urine (UA) Normal (Normal); Ketones,Urine 15 mg/dL (Negative); Leukocyte Esterase,Urine Trace (Negative); Nitrite,Urine Positive (Negative); Protein,Urine >=300 mg/dL (Neg-Trace); Urobilinogen,Urine Normal (Normal)
[2018-04-17 07:57] LABS: Color,Urine Brown (Yellow)
[2018-04-17 08:01] LABS: ABG Base Excess 2 mEq/L (-2 to 3); ABG HCO3 26 mEq/L (21-27); ABG Oxygen Saturation 100 % (95-98); ABG PCO2 37 mmHg (35-45); ABG PH 7.45 pH Units (7.32-7.45); ABG PO2 217 mmHg (85-104); ABG TCO2 27 mEq/L (20-26)
[2018-04-17 08:03] LABS: Bacteria,Urine Few per hpf (None-Few); RBC,Urine 0-3 per hpf (0-3); Squamous Epithelial Cell,Urine Few per lpf (None-Few); Yeast,Urine Many per hpf (None Seen)
[2018-04-17 08:36] LABS: Amphetamine Screen,Urine Negative ng/mL (Cutoff=1000)
[2018-04-17 08:37] LABS: Barbiturate Screen,Urine Negative ng/mL (Cutoff=200); Benzodiazepines Screen,Urine Positive ng/mL (Cutoff=200); Cannabinoid Screen,Urine Negative ng/mL (Cutoff = 50); Cocaine Screen,Urine Negative ng/mL (Cutoff= 300); Opiate Screen,Urine Negative ng/mL (Cutoff=300); Phencyclidine Screen,Urine Negative ng/mL (Cutoff=25)
[2018-04-17 09:09] LABS: Basophils % 0.3 %; Eosinophils # 0.2 K/mcL (0.0-0.6); Eosinophils % 4.1 %; Hematocrit 28.3 % (35.3-44.9); Hemoglobin 9.1 g/dL (11.5-15.4); Immature Granulocytes % 0.7 % (0-4); Lymphocytes # 0.7 K/mcL (0.6-4.6); Lymphocytes % 11.2 %; Mean Corpuscular HGB Conc 32.2 g/dL (31.6-35.5); Mean Corpuscular Volume 93.4 fL (83.0-100.0); Mean Platelet Volume 9.3 fL (9.4-12.4); Monocytes # 0.7 K/mcL (0.0-1.3); Neutrophils # 4.3 K/mcL (1.6-8.9); Platelet Count 180 K/mcL (140-400); Red Blood Count 3.03 M/mcL (3.82-4.97); Segmented Neutrophils % 72.7 %
[2018-04-17 09:09] LABS: Alanine Aminotransferase 10 Units/L (7-52); Albumin 3.7 g/dL (3.5-5.7); Albumin/Globulin Ratio 1.4 (1.1-2.2); Alkaline Phosphatase 55 Units/L (34-104); Aspartate Amino Transferase 19 Units/L (13-39); BUN/Creatinine Ratio 19 (6-26); Bilirubin,Direct 0.1 mg/dL (0.0-0.2); Bilirubin,Indirect 0.4 mg/dL (0.0-1.2); Bilirubin,Total 0.5 mg/dL (0.3-1.0); Blood Urea Nitrogen 17 mg/dL (8-23); Calcium 8.8 mg/dL (8.6-10.3); Carbon Dioxide 24 mEq/L (23-29); Chloride 102 mEq/L (98-107); Creatine Kinase 129 Units/L (30-223); Ethanol < 10 mg/dL (Less than 10); Globulin 2.7 g/dL (2.4-3.5); Glucose 136 mg/dL (70-105); Osmolality,Calculated 290 (280-300); Potassium 3.8 mEq/L (3.5-5.1); Sodium 138 mEq/L (136-145); Total Protein 6.4 g/dL (6.4-8.9); Troponin I < 0.03 ng/mL (< 0.04); eGFR For Non-African Americans 60 (> 60)
[2018-04-17 09:11] LABS: INR 1.4; Prothrombin Time 15.3 Seconds (9.4-12.1)
[2018-04-17 09:14] LABS: Activated Partial Thrombo Time 26.4 Seconds (26.0-36.0)
--- NOTE | 2018-04-17 09:58 | Emergency Department Note ---
Disposition Clinical Impression: Influenza, UTI (urinary tract infection), Dehydration, Sepsis Disposition: Admitted As Inpatient Condition: Serious Referrals: Adelina Mckeon CNP [Primary Care Provider] - Time of Disposition: 09:34 Altered Mental Status HPI - General Chief Complaint: ED Altered Mental Status Stated Complaint: metal status changes Time Seen by Provider: 04/17/18 06:55 Source: family Mode of arrival: EMS Limitations: altered mental status - Related Data Home Medications Medication Instructions Recorded Confirmed Pravastatin Sodium [Pravachol] 20 mg PO HS 12/22/14 04/17/18 Cyclosporine [Restasis] 1 each OP BID 04/11/18 04/17/18 Escitalopram [Lexapro] 10 mg PO DAILY 04/11/18 04/17/18 Fluticasone Propionate Nasal 100 mcg NS DAILY 04/11/18 04/17/18 [Flonase] Rivastigmine Tartrate (oral) 1.5 mg PO BID 04/11/18 04/17/18 [Exelon] Cranberry 400 mg PO DAILY 04/12/18 04/17/18 Docusate Sodium [Dok] 100 mg PO HS 04/12/18 04/17/18 Guaifenesin [Cough Syrup] 100 mg PO Q4H PRN 04/12/18 04/17/18 Metoprolol XL (24 HR) Succ [Toprol 50 mg PO DAILY 04/12/18 04/17/18 Xl] Pantoprazole Sodium [Protonix] 20 mg PO DAILY 04/12/18 04/17/18 Allergies Allergy/AdvReac Type Severity Reaction Status Date / Time alcohol Allergy Swelling Verified 04/17/18 06:57 of Lip/Tongue/Throat ciprofloxacin [From Cipro] Allergy Hives Verified 04/17/18 06:57 morphine Allergy Rash Verified 04/17/18 06:57 nitrofurantoin Allergy Confusion Verified 04/17/18 06:57 [From Macrobid] Penicillins Allergy Anaphylaxis Verified 04/17/18 06:57 olanzapine [From Zyprexa] AdvReac Irritable Verified 04/17/18 06:57 Past Medical History - Past Medical History Medical history: Reports: COPD, dementia, diabetes, hyperlipidemia, hypertension, other Surgical history: Reports: appendectomy, cataract, cholecystectomy, hysterectomy, knee replacement, orthopedic, other, other Psychiatric history: Reports: depression 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 - Social History Smoking Status: Never smoker Smokeless Tobacco Status: No Alcohol use: Reports: none Drug use: Reports: none Physical Exam - General Limitations: altered mental status General appearance: in no apparent distress, lethargic Course Vital Signs Temperature 98.1 F 04/17/18 07:04 Pulse Rate 128 04/17/18 07:04 Respiratory Rate 24 04/17/18 07:04 Blood Pressure 124/82 04/17/18 07:04 O2 Sat by Pulse Oximetry 74 04/17/18 07:04 Temperature 98.1 F 04/17/18 07:04 Pulse Rate 94 04/17/18 09:19 Respiratory Rate 15 04/17/18 09:19 Blood Pressure 110/61 04/17/18 09:19 O2 Sat by Pulse Oximetry 99 04/17/18 09:19 Oxygen Delivery Oxygen Delivery Bipap Altered Mental Status - MDM Narrative Medical decision making narrative: Urinary tract infection influenza mental status changes. Addendum by Dr. Little. Please see Dr. Wong's initial note. Saturations 96% on BiPAP at 50% FiO2 weaned to 40% and 28%. Saturations maintained. She will open eyes to tactile stimulation. Per daughter's history she is able to swallow pills. Influenza noted and Tamiflu given his suspension here in the emergency department. Yeast noted in urine we will give Diflucan IV because this might be a systemic infection and will emanate the need for removal of BiPAP and pills. Later on in the emergency room stay she took the BiPAP off and maintain saturations. I spoke with respiratory therapist about leaving and often monitoring her respiratory status. Tachycardia 128 on admission down to 100 before transfer. I was able to talk to her daughter who is a nurse about the specifics of DO NOT RESUSCITATE comfort care arrest DO NOT INTUBATE and she is in agreement that we will not perform chest compressions defibrillation or intubation. She would like her mother Here at [place] if at all possible. I spoke with Miss Alfonso's primary care provider and presented the case she accepted admission and Ms. Alfonso is transferred to the floor in stable condition. - Lab Data Result diagrams: 04/17/18 09:00 04/17/18 08:30 Lab Results 04/17/18 04/17/18 04/17/18 Range/Units 07:40 07:40 07:40 WBC (4.3-11.1) K/mcL RBC (3.82-4.97) M/mcL Hgb (11.5-15.4) g/dL Hct (35.3-44.9) % MCV (83.0-100.0) fL MCH (28.0-33.3) pg MCHC (31.6-35.5) g/dL RDW (11.5-14.5) % Plt Count (140-400) K/mcL MPV (9.4-12.4) fL Immature Gran % (0-4) % Seg Neutrophils % % Lymphocytes % % Monocytes % % Eosinophils % % Basophils % % Neutrophils # (1.6-8.9) K/mcL Lymphocytes # (0.6-4.6) K/mcL Monocytes # (0.0-1.3) K/mcL Eosinophils # (0.0-0.6) K/mcL Basophils # (0.0-0.2) K/mcL PT (9.4-12.1) Seconds INR APTT (26.0-36.0) Seconds ABG pH (7.32-7.45) pH Units ABG pCO2 (35-45) mmHg ABG pO2 (85-104) mmHg ABG HCO3 (21-27) mEq/L ABG Total CO2 (20-26) mEq/L ABG O2 Saturation (95-98) % ABG Base Excess (-2 to 3) mEq/L Sodium (136-145) mEq/L Potassium (3.5-5.1) mEq/L Chloride (98-107) mEq/L Carbon Dioxide (23-29) mEq/L BUN (8-23) mg/dL Creatinine (0.60-1.20) mg/dL Est GFR ( Amer) (> 60) Est GFR (Non-Af Amer) (> 60) BUN/Creatinine Ratio (6-26) Glucose (70-105) mg/dL Calculated Osmolality (280-300) Lactic Acid 1.3 (0.5-2.2) mmol/L Calcium (8.6-10.3) mg/dL Total Bilirubin (0.3-1.0) mg/dL Direct Bilirubin (0.0-0.2) mg/dL Indirect Bilirubin (0.0-1.2) mg/dL AST (13-39) Units/L ALT (7-52) Units/L Alkaline Phosphatase (34-104) Units/L Ammonia (16-53) mcmol/L Creatine Kinase (30-223) Units/L Troponin I (< 0.04) ng/mL Serum Total Protein (6.4-8.9) g/dL Albumin (3.5-5.7) g/dL Globulin (2.4-3.5) g/dL Albumin/Globulin Ratio (1.1-2.2) Urine Color Brown (Yellow) Urine Clarity Clear (Clear) Urine pH 6.0 (5.0-8.0) pH Units Ur Specific Walsh 1.020 (1.010-1.025) Urine Protein >=300 H (Neg-Trace) mg/dL Urine Glucose (UA) Normal (Normal) mg/dL Urine Ketones 15 H (Negative) mg/dL Urine Blood Trace-intact H (Negative) Urine Nitrite Positive A (Negative) Urine Bilirubin Small H (Negative) Urine Urobilinogen Normal (Normal) mg/dL Ur Leukocyte Esterase Trace H (Negative) Urine Microscopic RBC 0-3 (0-3) per hpf Urine Microscopic WBC 3-5 H (0-3) per hpf Ur Squamous Epith Cells Few (None-Few) per lpf Urine Bacteria Few (None-Few) per hpf Urine Yeast Many H (None Seen) per hpf Ur Culture Indicated? YES A (NO) Urine Opiates Screen Negative (Dvhsxt=171) ng/mL Ur Barbiturates Screen Negative (Lpfxiu=240) ng/mL Ur Phencyclidine Scrn Negative (Cutoff=25) ng/mL Ur Amphetamines Screen Negative (Aghkzm=6489) ng/mL U Benzodiazepines Scrn Positive H (Jiwvwn=836) ng/mL Urine Cocaine Screen Negative (Cutoff= 300) ng/mL U Marijuana (THC) Screen Negative (Cutoff = 50) ng/mL Ur Drug Screen Interp See Below Ethyl Alcohol (Less than 10) mg/dL 04/17/18 04/17/18 04/17/18 Range/Units 07:58 08:00 08:30 WBC (4.3-11.1) K/mcL RBC (3.82-4.97) M/mcL Hgb (11.5-15.4) g/dL Hct (35.3-44.9) % MCV (83.0-100.0) fL MCH (28.0-33.3) pg MCHC (31.6-35.5) g/dL RDW (11.5-14.5) % Plt Count (140-400) K/mcL MPV (9.4-12.4) fL Immature Gran % (0-4) % Seg Neutrophils % % Lymphocytes % % Monocytes % % Eosinophils % % Basophils % % Neutrophils # (1.6-8.9) K/mcL Lymphocytes # (0.6-4.6) K/mcL Monocytes # (0.0-1.3) K/mcL Eosinophils # (0.0-0.6) K/mcL Basophils # (0.0-0.2) K/mcL PT (9.4-12.1) Seconds INR APTT (26.0-36.0) Seconds ABG pH 7.45 (7.32-7.45) pH Units ABG pCO2 37 (35-45) mmHg ABG pO2 217 H (85-104) mmHg ABG HCO3 26 (21-27) mEq/L ABG Total CO2 27 H (20-26) mEq/L ABG O2 Saturation 100 H (95-98) % ABG Base Excess 2 (-2 to 3) mEq/L Sodium 138 (136-145) mEq/L Potassium 3.8 (3.5-5.1) mEq/L Chloride 102 (98-107) mEq/L Carbon Dioxide 24 (23-29) mEq/L BUN 17 (8-23) mg/dL Creatinine 0.89 (0.60-1.20) mg/dL Est GFR ( Amer) > 60 (> 60) Est GFR (Non-Af Amer) 60 (> 60) BUN/Creatinine Ratio 19 (6-26) Glucose 136 H (70-105) mg/dL Calculated Osmolality 290 (280-300) Lactic Acid (0.5-2.2) mmol/L Calcium 8.8 (8.6-10.3) mg/dL Total Bilirubin 0.5 (0.3-1.0) mg/dL Direct Bilirubin 0.1 (0.0-0.2) mg/dL Indirect Bilirubin 0.4 (0.0-1.2) mg/dL AST 19 (13-39) Units/L ALT 10 (7-52) Units/L Alkaline Phosphatase 55 (34-104) Units/L Ammonia 36 (16-53) mcmol/L Creatine Kinase 129 (30-223) Units/L Troponin I < 0.03 (< 0.04) ng/mL Serum Total Protein 6.4 (6.4-8.9) g/dL Albumin 3.7 (3.5-5.7) g/dL Globulin 2.7 (2.4-3.5) g/dL Albumin/Globulin Ratio 1.4 (1.1-2.2) Urine Color (Yellow) Urine Clarity (Clear) Urine pH (5.0-8.0) pH Units Ur Specific Walsh (1.010-1.025) Urine Protein (Neg-Trace) mg/dL Urine Glucose (UA) (Normal) mg/dL Urine Ketones (Negative) mg/dL Urine Blood (Negative) Urine Nitrite (Negative) Urine Bilirubin (Negative) Urine Urobilinogen (Normal) mg/dL Ur Leukocyte Esterase (Negative) Urine Microscopic RBC (0-3) per hpf Urine Microscopic WBC (0-3) per hpf Ur Squamous Epith Cells (None-Few) per lpf Urine Bacteria (None-Few) per hpf Urine Yeast (None Seen) per hpf Ur Culture Indicated? (NO) Urine Opiates Screen (Xapzip=233) ng/mL Ur Barbiturates Screen (Jpkrfz=717) ng/mL Ur Phencyclidine Scrn (Cutoff=25) ng/mL Ur Amphetamines Screen (Mxdxmj=8009) ng/mL U Benzodiazepines Scrn (Yarzme=766) ng/mL Urine Cocaine Screen (Cutoff= 300) ng/mL U Marijuana (THC) Screen (Cutoff = 50) ng/mL Ur Drug Screen Interp Ethyl Alcohol < 10 (Less than 10) mg/dL 04/17/18 04/17/18 Range/Units 09:00 09:00 WBC 5.9 (4.3-11.1) K/mcL RBC 3.03 L (3.82-4.97) M/mcL Hgb 9.1 L (11.5-15.4) g/dL Hct 28.3 L (35.3-44.9) % MCV 93.4 (83.0-100.0) fL MCH 30.0 (28.0-33.3) pg MCHC 32.2 (31.6-35.5) g/dL RDW 14.0 (11.5-14.5) % Plt Count 180 (140-400) K/mcL MPV 9.3 L (9.4-12.4) fL Immature Gran % 0.7 (0-4) % Seg Neutrophils % 72.7 % Lymphocytes % 11.2 % Monocytes % 11.0 % Eosinophils % 4.1 % Basophils % 0.3 % Neutrophils # 4.3 (1.6-8.9) K/mcL Lymphocytes # 0.7 (0.6-4.6) K/mcL Monocytes # 0.7 (0.0-1.3) K/mcL Eosinophils # 0.2 (0.0-0.6) K/mcL Basophils # 0.0 (0.0-0.2) K/mcL PT 15.3 H (9.4-12.1) Seconds INR 1.4 APTT 26.4 (26.0-36.0) Seconds ABG pH (7.32-7.45) pH Units ABG pCO2 (35-45) mmHg ABG pO2 (85-104) mmHg ABG HCO3 (21-27) mEq/L ABG Total CO2 (20-26) mEq/L ABG O2 Saturation (95-98) % ABG Base Excess (-2 to 3) mEq/L Sodium (136-145) mEq/L Potassium (3.5-5.1) mEq/L Chloride (98-107) mEq/L Carbon Dioxide (23-29) mEq/L BUN (8-23) mg/dL Creatinine (0.60-1.20) mg/dL Est GFR ( Amer) (> 60) Est GFR (Non-Af Amer) (> 60) BUN/Creatinine Ratio (6-26) Glucose (70-105) mg/dL Calculated Osmolality (280-300) Lactic Acid (0.5-2.2) mmol/L Calcium (8.6-10.3) mg/dL Total Bilirubin (0.3-1.0) mg/dL Direct Bilirubin (0.0-0.2) mg/dL Indirect Bilirubin (0.0-1.2) mg/dL AST (13-39) Units/L ALT (7-52) Units/L Alkaline Phosphatase (34-104) Units/L Ammonia (16-53) mcmol/L Creatine Kinase (30-223) Units/L Troponin I (< 0.04) ng/mL Serum Total Protein (6.4-8.9) g/dL Albumin (3.5-5.7) g/dL Globulin (2.4-3.5) g/dL Albumin/Globulin Ratio (1.1-2.2) Urine Color (Yellow) Urine Clarity (Clear) Urine pH (5.0-8.0) pH Units Ur Specific Walsh (1.010-1.025) Urine Protein (Neg-Trace) mg/dL Urine Glucose (UA) (Normal) mg/dL Urine Ketones (Negative) mg/dL Urine Blood (Negative) Urine Nitrite (Negative) Urine Bilirubin (Negative) Urine Urobilinogen (Normal) mg/dL Ur Leukocyte Esterase (Negative) Urine Microscopic RBC (0-3) per hpf Urine Microscopic WBC (0-3) per hpf Ur Squamous Epith Cells (None-Few) per lpf Urine Bacteria (None-Few) per hpf Urine Yeast (None Seen) per hpf Ur Culture Indicated? (NO) Urine Opiates Screen (Vikncv=639) ng/mL Ur Barbiturates Screen (Rfqrrm=444) ng/mL Ur Phencyclidine Scrn (Cutoff=25) ng/mL Ur Amphetamines Screen (Mzdxdw=5546) ng/mL U Benzodiazepines Scrn (Bhzsdd=943) ng/mL Urine Cocaine Screen (Cutoff= 300) ng/mL U Marijuana (THC) Screen (Cutoff = 50) ng/mL Ur Drug Screen Interp Ethyl Alcohol (Less than 10) mg/dL TPA Checklist - LKW: 3-4.5 hrs Add. Warnings/Precautions Patient/family understanding: The patient/family members have been counseled and understood the risk, benefit, and alternatives of treatment.
[2018-04-17] MEDS: Fluconazole 100 MG TABLET PO ONE ×2 (10:43→17:08)
[2018-04-17] MEDS ORDERED: Naloxone 0.4 MG/ML INJ IVP PRN (10:54)
[2018-04-17] MEDS ORDERED: Fluconazole 100 MG TABLET PO ONE (10:54)
[2018-04-17] MEDS ORDERED: Ondansetron 4 MG/2 ML VIAL IVP PRN (10:54)
[2018-04-17] MEDS ORDERED: Oseltamivir 6 MG/ML UDC PO ONE ×2 (11:14→11:15)
[2018-04-17] MEDS ORDERED: Fluconazole 200 MG/100 ML 200 MG/100 ML BAG IVPB SCH (11:15)
[2018-04-17] MEDS ORDERED: Vancomycin 500 MG in 0.9 % Sodium Chloride Mini Bag 100 ML IVPB SCH (12:20)
--- NOTE | 2018-04-17 13:04 | Internal Med History&Physical ---
Date of Encounter: 04/17/18 Time of Encounter: 16:10 Assessment and Plan (1) Influenza A Current visit: Yes Status: Acute tamiflu if she can tolerate po, adama is on bipap. She is hypotensive tachycardic. Her lactic acid is within range but that was drawn after her initial presentation and she did receive IV fluid resuscitation. We will continue IV fluids and supportive measures. Daughter Romana is aware that she is critically ill. She will be placed in isolation. (2) UTI (urinary tract infection) Current visit: Yes Status: Acute Urine cultures are pending blood cultures are pending she is hypertensive she is getting IV fluids. Her last urine culture was sensitive to cefepime will continue that vancomycin added as she was also inpatient. Qualifiers: Urinary tract infection type: acute cystitis Hematuria presence: with hematuria Qualified Code(s): N30.01 - Acute cystitis with hematuria (3) HTN (hypertension) Current visit: Yes Status: Acute She is hypotensive so we will be holding her hypertensive medications. Qualifiers: Hypertension type: essential hypertension Qualified Code(s): I10 - Essential (primary) hypertension (4) Mixed hyperlipidemia Current visit: Yes Status: Acute When she is able to tolerate by mouth medicine we will give her by mouth statin but it is okay to hold for now. (5) DM2 (diabetes mellitus, type 2) Current visit: Yes Status: Acute She currently does not take any home medicines for this will continue Accu-Cheks and medium scale as needed Qualifiers: Diabetes mellitus [facility] insulin use: without [facility] use Diabetes mellitus complication status: without complication Qualified Code(s): E11.9 - Type 2 diabetes mellitus without complications (6) COPD (chronic obstructive pulmonary disease) Current visit: Yes Status: Chronic COPD exacerbation due to influenza a she is getting Tamiflu BiPAP IV fluids nebulizer treatments Solu-Medrol. Qualifiers: COPD type: COPD with acute exacerbation Qualified Code(s): J44.1 - Chronic obstructive pulmonary disease with (acute) exacerbation (7) Cognitive impairment Current visit: Yes Status: Acute 2 well with medication changes will continue to follow apparently Depakote is what they give her if she has behavior issues she is not really alert so we will hold off on medications for that but will give her Depakote if need be. (8) DVT prophylaxis Current visit: Yes Status: Acute Lovenox (9) Atrial fibrillation Current visit: Yes Status: Chronic Is currently tachycardic. It is hard to continue her Lopressor given her hypotensive state. We will continue to follow may need to add Cardizem we will see. Her heart rate did come down with the IV fluids, she is not a candidate for anticoagulation due to her frequent falls and fractures Qualifiers: Atrial fibrillation type: unspecified Qualified Code(s): I48.91 - Unspecified atrial fibrillation (10) DNR (do not resuscitate) discussion Current visit: Yes Status: Acute discussed with daughter Romana this morning via phone. her mom is dnr after her last hospitalization with intubation. she does not want intubation or cpr now. Romana is power of indian nanny. Discussed with Romana we do not have ICU staff/capabilities here. Romana wayne prefer to keep her mother here. She knows this hospitals limitations as she used to work here. She wants to see what the next 24 hours bring see if she improves or if she wants to consider hospice. I thinks this approach is reasonable given all her co morbidities. Internal Medicine - H&P: HPI Chief complaint: confusion, Admitted From: Home History of present illness: Ms. Alfonso is a 87 year old female Who was just discharged from [place] April 13 with aspiration pneumonia mental status changes possible seizure. She had been intubated that admission she was extubated. She was having confusion as she often does when she is not her home environment daughter elected to take her home and care for her. She was doing okay until yesterday when she had decreased alertness she did not swallow her pills. This morning she was confused disoriented she was brought to the emergency room with confusion she was started on BiPAP. She did test positive for influenza. Her chest x-ray did not show any acute change. She has been hypotensive tachycardic hypoxic. She has been getting IV fluids. She did test positive for influenza A. Tamiflu has been ordered as well as several antibio tics. She did have a UTI. In her urine appears infected today as well. Vanco and cefepime I spoke with Romana this morning her mom is critically ill. She really does not want her transferred back down to [place] she did not have a good experience. She knows her mom is very sick she is aware of the capabilities of our hospital that we are not NICU. She wants to do the BiPAP IV fluids and antibiotics see what happens in the next 24 hours at that point time make decision if she is improving or if she is not a improving consider hospice. Also has history of falls she had a recent elbow fracture she is supposed to have surgery on this. Obviously she is not cleared for surgery on Monday. Beba simmonsmat is her power of indian nanny and she is CODE STATUS DNR CC arrest DO NOT INTUBATE Past Med Surg Social Fam HX - Past Medical History Medical history: arthritis, atrial fibrillation, COPD, dementia, diabetes, hyperlipidemia, hypertension, other (recurrent uti, demario refuses cpap, incontinence, femur fx, humeral fx, recent right elbow fracture) Additional medical history: frequent UTI's Psychiatric history: depression - Past Surgical History Surgical History: appendectomy, cataract, cholecystectomy, hysterectomy, knee replacement (bilateral 2001), orthopedic, other (left shoulder replacement 02/2012, right femur orif 2017), other (bowel resection, dental, egd 2012) Additional surgical history: Bowel resection - Social History Smoking Status: Never smoker Smokeless Tobacco Status: No Alcohol use: none Drug use: none - Family History Father Living Status: Hx Family Cancer: Yes (skin and lung) Mother Living Status: Age at : 93 Sister Living Status: Still Living Hx Family Neurologic Disorders: Yes (polio) Internal Medicine - H&P: Meds Pravastatin Sodium [Pravachol] 20 mg PO HS 12/22/14 [History] Cyclosporine [Restasis] 1 each OP BID 04/11/18 [History] Escitalopram [Lexapro] 10 mg PO DAILY 04/11/18 [History] Fluticasone Propionate Nasal [Flonase] 100 mcg NS DAILY 04/11/18 [History] Rivastigmine Tartrate (oral) [Exelon] 1.5 mg PO BID 04/11/18 [History] Cranberry 400 mg PO DAILY 04/12/18 [History] Docusate Sodium [Dok] 100 mg PO HS 04/12/18 [History] Guaifenesin [Cough Syrup] 100 mg PO Q4H PRN 04/12/18 [History] Metoprolol XL (24 HR) Succ [Toprol Xl] 50 mg PO DAILY 04/12/18 [History] Pantoprazole Sodium [Protonix] 20 mg PO DAILY 04/12/18 [History] Allergy/AdvReac Type Severity Reaction Status Date / Time alcohol Allergy Swelling Verified 04/17/18 06:57 of Lip/Tongue/Throat ciprofloxacin [From Cipro] Allergy Hives Verified 04/17/18 06:57 morphine Allergy Rash Verified 04/17/18 06:57 nitrofurantoin Allergy Confusion Verified 04/17/18 06:57 [From Macrobid] Penicillins Allergy Anaphylaxis Verified 04/17/18 06:57 olanzapine [From Zyprexa] AdvReac Irritable Verified 04/17/18 06:57 All Systems PM: A 10-system review of systems was performed and is negative for pertinent findings except as documented above in the HPI. Review of systems: per daughter she is not answering questions. - Constitutional Constitutional: falls, no fever(s) - EENT Nose, mouth and throat: no hoarseness, no nasal congestion, no sore throat - Cardiovascular Cardiovascular ROS IM: edema (of the right upper ext with eccymosis in splint has had pain in the elbow too), no syncope - Respiratory Respiratory: cough (but states not above her baseline cough ), no dyspnea, no wheezing, no excessive phlegm production, no change in phlegm color - Gastrointestinal Gastrointestinal: no constipation, no diarrhea, no hematochezia, no nausea, no vomiting - Genitourinary Genitourinary: dysuria, urinary incontinence (chronic but not changed), no difficulty urinating (has not really changed did get dark yesterday) - Musculoskeletal Musculoskeletal ROS IM: joint swelling (right elbow with the fracture in splint) - Integumentary Integumentary IM: unusual bruising (of the right arm and abd from lovenox injections), no rash - Neurological Neurological ROS: confusion, frequent falls, memory loss, no abnormal speech - Psychiatric Psychiatric: confusion - Constitutional Vitals: Temp Pulse Resp BP Pulse Ox 98.1 F 104 20 130/93 99 04/17/18 07:04 04/17/18 11:48 04/17/18 11:48 04/17/18 11:48 04/17/18 11:48 General appearance: Present: A&O X 2. Absent: answers questions appropriately (sleeping easy to arouse) - Head Head exam: Present: atraumatic, normocephalic - Neck Neck exam general surgery: Present: supple (right ij iv), trachea midline - Respiratory Respiratory exam: Present: prolonged expiratory phase, rhonchi (lll). Absent: accessory muscle use - Cardiovascular Cardiovascular exam: Present: irregular rhythm, tachycardia. Absent: systolic murmur - GI/Abdominal GI/Abdominal exam: Present: normal bowel sounds, soft, no peritoneal signs. Absent: distended - Extremities Exam Extremities exam: Present: normal capillary refill (of the right hand but with eccymosis of the entire hand splint in place fingers warm). Absent: pedal edema - Skin Skin exam: Present: dry, warm. Absent: rash Internal Med - H&P Results - Labs CBC & Chem 7: 04/17/18 09:00 04/17/18 08:30 Labs: Short CBC 04/17/18 Range/Units 09:00 WBC 5.9 (4.3-11.1) K/mcL Hgb 9.1 L (11.5-15.4) g/dL Hct 28.3 L (35.3-44.9) % Plt Count 180 (140-400) K/mcL Neutrophils # 4.3 (1.6-8.9) K/mcL BMP 04/17/18 08:30 Sodium 138 Potassium 3.8 Chloride 102 Carbon Dioxide 24 BUN 17 Creatinine 0.89 Glucose 136 H Calcium 8.8 Cardiac Enzymes 04/17/18 Range/Units 08:30 Troponin I < 0.03 (< 0.04) ng/mL Liver Function 04/17/18 Range/Units 08:30 Total Bilirubin 0.5 (0.3-1.0) mg/dL Direct Bilirubin 0.1 (0.0-0.2) mg/dL AST 19 (13-39) Units/L ALT 10 (7-52) Units/L Alkaline Phosphatase 55 (34-104) Units/L Albumin 3.7 (3.5-5.7) g/dL Urine 04/17/18 Range/Units 07:40 Urine Color Brown (Yellow) Urine Clarity Clear (Clear) Urine pH 6.0 (5.0-8.0) pH Units Ur Specific [employer] 1.020 (1.010-1.025) Urine Protein >=300 H (Neg-Trace) mg/dL Urine Glucose (UA) Normal (Normal) mg/dL - ABG Interpretation ABG results: 04/17/18 07:58 ABG pH 7.45 ABG pCO2 37 ABG pO2 217 H ABG HCO3 26 ABG Total CO2 27 H ABG O2 Saturation 100 H ABG Base Excess 2 - Impressions ITS Impressions Chest X-Ray 04/17/18 07:08 IMPRESSION: Enlarged cardiomediastinal silhouette appears unchanged. No focal consolidation, pneumothorax, or significant pleural effusion. D/ / William Salinas MD / William Salinas MD Interpreting Provider: William Salinas MD Head CT 04/17/18 07:09 IMPRESSION: No evidence of acute intracranial abnormality. D/ / 04/17/2018 08:51:25 Anthony Vyas MD / james Interpreting Provider: Anthony Vyas MD
[2018-04-17] MEDS: 0.9 % Sodium Chloride 1,000 ML IVC SCH ×2 (14:24→21:25)
[2018-04-17] MEDS: methylPREDNISolone 125 MG/2 ML VIAL IVP SCH ×2 (17:13→23:46)
[2018-04-17] MEDS: Famotidine 20 MG/2 ML VIAL IVP SCH (17:14)
[2018-04-17] MEDS ORDERED: Ipratropium/Albuterol Neb 3 ML IH PRN (17:57)
--- NOTE | 2018-04-17 18:37 | Electrocardiograph Report ---
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
[2018-04-17] MEDS ORDERED: D5% in Water 1,000 ML IVC PRN (20:02)
[2018-04-17] MEDS ORDERED: *HR* Dextrose 50 % in Water (Syg) 50 ML SYRINGE IVP PRN (20:02)
[2018-04-17] MEDS ORDERED: Dextrose 4 GM Chewable Tablets PO PRN ×2 (20:02)
[2018-04-17] MEDS ORDERED: Dextrose Gel 15 GM/37.5 ML TUBE PO PRN ×2 (20:02)
[2018-04-17] MEDS: Ipratropium/Albuterol Neb 3 ML IH SCH ×2 (20:33→23:46)
[2018-04-17] MEDS: Insulin LISPRO 300 UNITS/3 ML VIAL SQ SCH (20:54)
[2018-04-17] MEDS: (Cyclosporine [Restasis] 1 EACH) OP SCH (20:59)
[2018-04-17] MEDS: Oseltamivir Phosphate 30 MG CAPSULE PO SCH (21:24)
[2018-04-18 01:22] LABS: Basophils % 0.2 %; Eosinophils % 0.2 %; Hematocrit 31.4 % (35.3-44.9); Hemoglobin 10.1 g/dL (11.5-15.4); Immature Granulocytes % 0.6 % (0-4); Lymphocytes # 0.3 K/mcL (0.6-4.6); Mean Corpuscular HGB Conc 32.2 g/dL (31.6-35.5); Mean Corpuscular Hemoglobin 29.8 pg (28.0-33.3); Mean Corpuscular Volume 92.6 fL (83.0-100.0); Mean Platelet Volume 9.2 fL (9.4-12.4); Monocytes % 0.8 %; Neutrophils # 4.6 K/mcL (1.6-8.9); Platelet Count 235 K/mcL (140-400); Red Blood Count 3.39 M/mcL (3.82-4.97); Red Cell Distribution Width 14.2 % (11.5-14.5); Segmented Neutrophils % 93.2 %
[2018-04-18 02:20] LABS: BUN/Creatinine Ratio 18 (6-26); Blood Urea Nitrogen 12 mg/dL (8-23); Calcium 8.1 mg/dL (8.6-10.3); Carbon Dioxide 24 mEq/L (23-29); Chloride 106 mEq/L (98-107); Glucose 224 mg/dL (70-105); Magnesium 1.6 mg/dL (1.6-2.6); Osmolality,Calculated 299 (280-300); Potassium 3.7 mEq/L (3.5-5.1); Sodium 141 mEq/L (136-145); eGFR For Non-African Americans > 60 (> 60)
[2018-04-18] MEDS: Ipratropium/Albuterol Neb 3 ML IH SCH ×6 (03:50→19:34)
[2018-04-18] MEDS: 0.9 % Sodium Chloride 1,000 ML IVC SCH ×2 (03:52→19:28)
[2018-04-18] MEDS: Famotidine 20 MG/2 ML VIAL IVP SCH (05:51)
[2018-04-18] MEDS: *HR* Enoxaparin 30 MG/0.3 ML SYRINGE SQ SCH (05:52)
[2018-04-18] MEDS: methylPREDNISolone 125 MG/2 ML VIAL IVP SCH ×2 (07:46→15:38)
[2018-04-18] MEDS: Fluconazole 200 MG/100 ML 200 MG/100 ML BAG IVPB SCH (07:48)
[2018-04-18] MEDS: Oseltamivir Phosphate 30 MG CAPSULE PO SCH ×2 (07:52→19:24)
[2018-04-18] MEDS: (Cyclosporine [Restasis] 1 EACH) OP SCH ×2 (07:52→19:24)
[2018-04-18] MEDS: Insulin LISPRO 300 UNITS/3 ML VIAL SQ SCH ×4 (08:06→22:48)
[2018-04-18] MEDS ORDERED: Oseltamivir Phosphate 30 MG CAPSULE PO SCH (09:00)
[2018-04-18] MEDS ORDERED: Metoprolol XL (24 HR) Succ 50 MG TAB.ER.24H PO SCH (09:00)
[2018-04-18] MEDS ORDERED: Oseltamivir 6 MG/ML UDC PO SCH (09:00)
[2018-04-18] MEDS ORDERED: Fluconazole 200 MG/100 ML 200 MG/100 ML BAG IVPB SCH (09:00)
[2018-04-18] MEDS: Cefepime HCl 2,000 MG in Water for inj. (sterile) 20 ML 20 ML IVP SCH ×2 (09:35→17:32)
[2018-04-18 09:59] LABS: Thyroid Stimulating Hormone 1.316 mcIU/mL (0.340-5.600)
[2018-04-18] MEDS: Metoprolol XL (24 HR) Succ 50 MG TAB.ER.24H PO SCH (10:59)
--- NOTE | 2018-04-18 13:21 | Internal Med Progress Note ---
Date of Encounter: 04/18/18 Time of Encounter: 14:48 - Assessment and plan (1) Influenza A Current Visit: Yes Status: Acute Assessment and plan: sHe has been weaned off BiPAP she is on room air. She is on Tamiflu pharmacy has changed the dosing based on renal protocol. She continues to get duo nebs Solu-Medrol. (2) UTI (urinary tract infection) Current Visit: Yes Status: Acute Assessment and plan: Cultures pending she is on vancomycin as she was intubated with a Gray NICU just last week. She also is on cefepime which her last urine culture was sensitive to she also is on Diflucan for the many yeast cells seen in the urine as well. She does have a Gray catheter she has decreased alertness much she is alert we will look into removing that. Blood and urine Cultures are pending Qualifiers: Urinary tract infection type: acute cystitis Hematuria presence: with hem aturia Qualified Code(s): N30.01 - Acute cystitis with hematuria (3) HTN (hypertension) Current Visit: Yes Status: Acute Assessment and plan: Her blood pressure have been increased. She initially came in hypotensive. That hypotension did respond well to IV fluids. She did develop A. fib with RVR and ended up on a Cardizem drip we will increase her metoprolol in an attempt to wean her off the Cardizem drip. Qualifiers: Hypertension type: essential hypertension Qualified Code(s): I10 - Essential (primary) hypertension (4) Mixed hyperlipidemia Current Visit: Yes Status: Acute Assessment and plan: Not currently treating right now. (5) DM2 (diabetes mellitus, type 2) Current Visit: Yes Status: Acute Assessment and plan: She has had some elevated sugars with the Solu-Medrol. She is only on diet at home. 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 She is on cefepime and vancomycin she was just recently intubated in the ICU. She does have a significant risk for resistant organisms Qualifiers: COPD type: COPD with acute exacerbation Qualified Code(s): J44.1 - Chronic obstructive pulmonary disease with (acute) exacerbation (7) Cognitive impairment Current Visit: Yes Status: Acute (8) DVT prophylaxis Current Visit: Yes Status: Acute Assessment and plan: She is on Lovenox (9) Atrial fibrillation Current Visit: Yes Status: Chronic Assessment and plan: not Anticoagulated at home due to her fall risk. She did develop A. fib with RVR she is on a Cardizem drip currently we did increase metoprolol an attempt to try to wean the Cardizem drip. Qualifiers: Atrial fibrillation type: unspecified Qualified Code(s): I48.91 - Unspecified atrial fibrillation (10) DNR (do not resuscitate) discussion Current Visit: Yes Status: Acute (11) Elbow fracture, right Current Visit: Yes Status: Acute Assessment and plan: She is currently in a splint there is a lot of significant bruising and edema. She is not cleared to have surgery to repair this. Qualifiers: Encounter type: subsequent encounter Fracture type: closed Fracture healing: with routine healing Qualified Code(s): S42.401D - Unspecified fracture of lower end of right humerus, subsequent encounter for fracture with routine healing (12) Atrial fibrillation with RVR Current Visit: Yes Status: Acute Assessment and plan: Ended up with a heart rate in the 130s and 140s last night she was put on a Cardizem drip to control her heart rate. This morning we increased her oral metoprolol dose in an attempt to try to wean her off the Cardizem drip. She is not anticoagulated due to her frequent fall risk. (13) Altered mental status Current Visit: No Status: Acute Assessment and plan: Decreased alertness due to the influenza a infection as well as a UTI. We will avoid benzos and antipsychotics that she does not do well with this if she develops behavioral issues she has done okay with Depakote in the past and that is available in her Pyxis should be needed. She does have a history of becoming aggressive with her UTIs she has had a sitter and had family member stay with her to try to help keep her oriented. Qualifiers: Altered mental status type: unspecified Qualified Code(s): R41.82 - Altered mental status, unspecified - Subjective Interval history: Last night she developed A. fib with RVR rate 130s to 140s. She was placed on an IV Cardizem drip to control her rates her rate did become controlled on this. We increased her metoprolol dosage to try to wean off the drip trying to work on weaning that off now. she is alert now talking but not about people who are alive or here her breathing is still raspy. - Constitutional Vitals: Temp Pulse Resp BP Pulse Ox 99.3 F 101 19 157/67 93 04/18/18 07:27 04/18/18 07:27 04/18/18 11:12 04/18/18 07:04/18/18 11:12 General appearance: Present: A&O X 2. Absent: answers questions appropriately (sleeping easy to arouse) - Head Head exam: Present: atraumatic, normocephalic - Neck Neck exam general surgery: Present: supple (ij line), trachea midline - Respiratory Respiratory exam: Present: rhonchi (throughout) - Cardiovascular Cardiovascular exam: Present: irregular rhythm - GI/Abdominal GI/Abdominal exam: Present: normal bowel sounds, soft, no peritoneal signs. Absent: distended, tenderness - Extremities Exam Extremities exam: Present: normal capillary refill (ecchymosis of the right hand in splint. good cap rf, edema of hand). Absent: pedal edema - Skin Skin exam: Present: dry. Absent: warm Internal Medicine: Result - Labs CBC & Chem 7: 04/18/18 01:15 04/18/18 01:15 Labs: Short CBC 04/18/18 Range/Units 01:15 WBC 5.0 (4.3-11.1) K/mcL Hgb 10.1 L (11.5-15.4) g/dL Hct 31.4 L (35.3-44.9) % Plt Count 235 (140-400) K/mcL Neutrophils # 4.6 (1.6-8.9) K/mcL BMP 04/18/18 01:15 Sodium 141 Potassium 3.7 Chloride 106 Carbon Dioxide 24 BUN 12 Creatinine 0.65 Glucose 224 H Calcium 8.1 L Cardiac Enzymes 04/18/18 04/18/18 Range/Units 01:15 07:15 Troponin I < 0.03 < 0.03 (< 0.04) ng/mL - ABG Interpretation ABG results: ABG ABG pH 7.45 pH Units (7.32-7.45) 04/17/18 07:58 ABG pCO2 37 mmHg (35-45) 04/17/18 07:58 ABG pO2 217 mmHg (85-104) H 04/17/18 07:58 ABG O2 Saturation 100 % (95-98) H 04/17/18 07:58 PT/INR, D-dimer PT 15.3 Seconds (9.4-12.1) H 04/17/18 09:00 Consult Discharge Plan - Plan Referrals: Adelina Mckeon, [facility]ARNISHER [Primary Care Provider] -
[2018-04-18] MEDS: Divalproex Sodium 125 MG CAPSULE PO SCH ×2 (15:31→19:24)
[2018-04-18] MEDS ORDERED: Cefepime HCl 2,000 MG in Water for inj. (sterile) 20 ML 20 ML IVP SCH (18:00)
--- NOTE | 2018-04-18 20:22 | Electrocardiograph Report ---
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
[2018-04-19] MEDS: Ipratropium/Albuterol Neb 3 ML IH SCH ×6 (00:25→21:29)
[2018-04-19] MEDS: Cefepime HCl 2,000 MG in Water for inj. (sterile) 20 ML 20 ML IVP SCH ×2 (05:06→17:53)
[2018-04-19] MEDS: methylPREDNISolone 125 MG/2 ML VIAL IVP SCH ×2 (05:07→17:30)
[2018-04-19] MEDS: *HR* Enoxaparin 30 MG/0.3 ML SYRINGE SQ SCH (05:07)
[2018-04-19] MEDS: (Cyclosporine [Restasis] 1 EACH) OP SCH ×2 (08:39→21:28)
[2018-04-19] MEDS: Metoprolol XL (24 HR) Succ 50 MG TAB.ER.24H PO SCH ×2 (08:39→09:54)
[2018-04-19] MEDS: Divalproex Sodium 125 MG CAPSULE PO SCH ×2 (08:39→21:27)
[2018-04-19] MEDS: Oseltamivir Phosphate 30 MG CAPSULE PO SCH ×2 (08:39→21:28)
[2018-04-19] MEDS: Insulin LISPRO 300 UNITS/3 ML VIAL SQ SCH ×4 (08:45→21:28)
[2018-04-19 09:30] LABS: BUN/Creatinine Ratio 26 (6-26); Blood Urea Nitrogen 21 mg/dL (8-23); Calcium 8.3 mg/dL (8.6-10.3); Carbon Dioxide 22 mEq/L (23-29); Chloride 105 mEq/L (98-107); Glucose 289 mg/dL (70-105); Osmolality,Calculated 292 (280-300); Potassium 4.1 mEq/L (3.5-5.1); Sodium 134 mEq/L (136-145); eGFR For Non-African Americans > 60 (> 60)
[2018-04-19] MEDS: Fluconazole 200 MG/100 ML 200 MG/100 ML BAG IVPB SCH (09:30)
[2018-04-19] MEDS: Fluticasone Propionate Nasal 50 MCG/SPRAY BOTTLE NS SCH (09:37)
[2018-04-19 09:43] LABS: Hematocrit 29.5 % (35.3-44.9); Hemoglobin 9.4 g/dL (11.5-15.4); Immature Granulocytes % 1.1 % (0-4); Lymphocytes # 0.4 K/mcL (0.6-4.6); Lymphocytes % 4.3 %; Mean Corpuscular HGB Conc 31.9 g/dL (31.6-35.5); Mean Corpuscular Hemoglobin 29.7 pg (28.0-33.3); Mean Corpuscular Volume 93.1 fL (83.0-100.0); Mean Platelet Volume 9.1 fL (9.4-12.4); Monocytes # 0.2 K/mcL (0.0-1.3); Monocytes % 2.1 %; Neutrophils # 8.1 K/mcL (1.6-8.9); Platelet Count 298 K/mcL (140-400); Red Blood Count 3.17 M/mcL (3.82-4.97); Red Cell Distribution Width 14.6 % (11.5-14.5); Segmented Neutrophils % 92.5 %
--- NOTE | 2018-04-19 11:28 | Internal Med Progress Note ---
Date of Encounter: 04/19/18 Time of Encounter: 12:35 - Assessment and plan (1) Influenza A Current Visit: Yes Status: Acute Assessment and plan: sHe had been on room air did have increased resp last night put back on oxygen, she does not like to keep it on. her breathing is raspy She is on Tamiflu pharmacy has changed the dosing based on renal protocol. She continues to get duo nebs Solu-Medrol.she is not stable for d/c will change to admit (2) UTI (urinary tract infection) Current Visit: Yes Status: Acute Assessment and plan: Cultures pending she is on vancomycin as she was intubated with a Gray NICU just last week. She also is on cefepime which her last urine culture was sensitive to she also is on Diflucan for the many yeast cells seen in the urine as well. She does have a Gray catheter. adama gets more combative with shante care. she is alert we will look into removing that. but will hold off due to patient comfort as changing her and moving her causes her to get upset Blood and urine Cultures are pending. she did get a midline line in today. last several attempts have failed . now her ij iv is d.c Qualifiers: Urinary tract infection type: acute cystitis Hematuria presence: with hematuria Qualified Code(s): N30.01 - Acute cystitis with hematuria (3) HTN (hypertension) Current Visit: Yes Status: Acute Assessment and plan: Her blood pressure have been increased. She initially came in hypotensive. That hypotension did respond well to IV fluids. her blood pressure is up today. her metoprolol was increase for the htn and for a fib rate control. Qualifiers: Hypertension type: essential hypertension Qualified Code(s): I10 - Essential (primary) hypertension (4) Mixed hyperlipidemia Current Visit: Yes Status: Acute Assessment and plan: Not currently treating right now. she can have her po meds if she tolerates them (5) DM2 (diabetes mellitus, type 2) Current Visit: Yes Status: Acute Assessment and plan: She has had some elevated sugars with the Solu-Medrol. She is only on diet at home. We will check Accu-Cheks and sliding scale as needed. 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 dose decreased last night to try to help with her behaviors she has been weaned to room air continue duo nebs. She is on cefepime and vancomycin she was just recently intubated in the ICU. She does have a significant risk for resistant organisms Qualifiers: COPD type: COPD with acute exacerbation Qualified Code(s): J44.1 - Chronic obstructive pulmonary disease with (acute) exacerbation (7) Cognitive impairment Current Visit: Yes Status: Acute Assessment and plan: yesterday she got more alert and was very combative. daughters were worried with her swinging that she would cause more injury to her elbow fracture. family requested the depakote. it was started. she was still aggressive even with her daughters there to try to calm her. may requested trying haldol. it was given she got several doses 4hours apart before it had an effect. she did sleep from 1 to 4 but then back to hitting combative. she had a sitter all night. (8) DVT prophylaxis Current Visit: Yes Status: Acute Assessment and plan: She is on Lovenox (9) Atrial fibrillation Current Visit: Yes Status: Chronic Assessment and plan: not Anticoagulated at home due to her fall risk. She did develop A. fib with RVR she is on a Cardizem drip her po metoprolol dose was increased and the cardi zem was weaned off. she did become tachy again and the metoprolol dose was increased again. if it does not stay in range will need to do the cardize, gtt again Qualifiers: Atrial fibrillation type: unspecified Qualified Code(s): I48.91 - Unspe cified atrial fibrillation (10) DNR (do not resuscitate) discussion Current Visit: Yes Status: Acute (11) Elbow fracture, right Current Visit: Yes Status: Acute Assessment and plan: She is currently in a splint there is a lot of significant bruising and edema. She is not cleared to have surgery to repair this. Qualifiers: Encounter type: subsequent encounter Fracture type: closed Fracture healing: with routine healing Qualified Code(s): S42.401D - Unspecified fracture of lower end of right humerus, subsequent encounter for fracture with routine healing (12) Atrial fibrillation with RVR Current Visit: Yes Status: Acute (13) Altered mental status Current Visit: No Status: Acute Qualifiers: Altered mental status type: unspecified Qualified Code(s): R41.82 - Altered mental status, unspecified - Subjective Interval history: she was weaned off the cardizem last night. her heart rate was stable last night. now she is becoming more tachy again. metoprolol dose was increased again today. she was very combative yesterday. daughters requested med to help her. gave her depakote and still swinging and combative. family was worried about her hurting the broken elbow. gave haldol. sitter stayed with her. staff was constantly in room to help calm her. she got a 2nd dose of haldol still then slept rom 1 to 4 am. she is currently resting but arousable. she does not answer questions appropriately. she did start to get labored resp and tachypnea. restarted her mucinex and her home meds. tried to wean the steroids to help with her aggressive behaviors.she is not eating. she has a hx of asp pneumonia. hard to get her to focus to be safe eating. she is either talking a lot when eating or not alert enough. she saw ST and she did ok but still trouble with directing her to swallow - Constitutional Vitals: Temp Pulse Resp BP Pulse Ox 99.2 F 119 23 158/99 96 04/19/18 10:34 04/19/18 10:34 04/19/18 10:34 04/19/18 10:34 04/19/18 10:34 General appearance: Present: A&O X 1. Absent: answers questions appropriately (sleeping easy to arouse) - Head Head exam: Present: atraumatic, normocephalic - Neck Neck exam general surgery: Present: supple, trachea midline - Respiratory Respiratory exam: Present: rhonchi (throughout and coarse breath sounds) - Cardiovascular Cardiovascular exam: Present: irregular rhythm, tachycardia - GI/Abdominal GI/Abdominal exam: Present: normal bowel sounds, soft, no peritoneal signs. Absent: guarding, tenderness - Extremities Exam Extremities exam: Present: warm. Absent: pedal edema (but she does have edema of the right hand with eccymosis in spint good cap rf) - Skin Skin exam: Present: dry, warm Internal Medicine: Result - Labs CBC & Chem 7: 04/19/18 09:08 04/19/18 09:08 Labs: Short CBC 04/19/18 Range/Units 09:08 WBC 8.8 D (4.3-11.1) K/mcL Hgb 9.4 L (11.5-15.4) g/dL Hct 29.5 L (35.3-44.9) % Plt Count 298 (140-400) K/mcL Neutrophils # 8.1 (1.6-8.9) K/mcL BMP 04/19/18 09:08 Sodium 134 L Potassium 4.1 Chloride 105 Carbon Dioxide 22 L BUN 21 Creatinine 0.81 Glucose 289 H Calcium 8.3 L Cardiac Enzymes 04/18/18 Range/Units 13:30 Troponin I < 0.03 (< 0.04) ng/mL - ABG Interpretation ABG results: ABG ABG pH 7.45 pH Units (7.32-7.45) 04/17/18 07:58 ABG pCO2 37 mmHg (35-45) 04/17/18 07:58 ABG pO2 217 mmHg (85-104) H 04/17/18 07:58 ABG O2 Saturation 100 % (95-98) H 04/17/18 07:58 PT/INR, D-dimer PT 15.3 Seconds (9.4-12.1) H 04/17/18 09:00 - Impressions Impressions Head CT 04/17/18 07:09 IMPRESSION: No evidence of acute intracranial abnormality. D/ / 04/17/2018 08:51:25 Anthony Vyas MD / james Interpreting Provider: Anthony Vyas MD Consult Discharge Plan - Plan Referrals: Adelina Mckeon, CREDIT RATING INSPECTOR [Primary Care Provider] -
[2018-04-19] MEDS: 0.9 % Sodium Chloride 1,000 ML IVC SCH (22:12)
[2018-04-20] MEDS: Ipratropium/Albuterol Neb 3 ML IH SCH ×6 (01:00→19:59)
[2018-04-20] MEDS: Cefepime HCl 2,000 MG in Water for inj. (sterile) 20 ML 20 ML IVP SCH ×2 (05:45→17:28)
[2018-04-20] MEDS: methylPREDNISolone 125 MG/2 ML VIAL IVP SCH ×2 (05:45→17:30)
[2018-04-20] MEDS: *HR* Enoxaparin 30 MG/0.3 ML SYRINGE SQ SCH (05:45)
[2018-04-20] MEDS: (Cyclosporine [Restasis] 1 EACH) OP SCH ×2 (09:06→21:40)
[2018-04-20] MEDS: Metoprolol XL (24 HR) Succ 50 MG TAB.ER.24H PO SCH (09:17)
--- NOTE | 2018-04-20 09:28 | Internal Med Progress Note ---
Date of Encounter: 04/20/18 Time of Encounter: 13:16 - Assessment and plan (1) Influenza A Current Visit: Yes Status: Acute Assessment and plan: she is back on the oxygen. her breathing is raspy She is on Tamiflu pharmacy has changed the dosing based on renal protocol. She continues to get duo nebs Solu-Medrol.she is not stable for d/c. she no longer needs the bipap but her does have increased work of breathing. she is not stable for d/c she has been declining from a respiratory standpoint she is having slower respirations. She is more difficult to arouse. Had a long conversation with May and Tara her daughters and her son. Discussed additional plans for her. Her children do not want to see her sufferer. She has very significant cognitive decline and dementia. She has the elbow fracture. She has not had a fever she has not had an elevated white count. Her cultures are all still pending. She continues to be on high-dose antibiotics. Family wanted to continue antibiotics until the cultures were back. Since they are send out to [place] takes a longer time to get the results. Discussed that if the cultures did not grow anything we will start to taper her back on antibiotics. Discussed if she became short of breath apneic whether we will put her on BiPAP again family did not want her put back on BiPAP. Discussed if she became uncomfortable or in pain what to do for pain family was okay with Roxanol orally. There were also okay with Ativan if needed. Orders were not written for that she is currently comfortable and not really arousable. We will continue with the when necessary Haldol. Family is going to look into placement after this whether they do hospice at home versus [facility] Daughters are looking into benefits and clinical social work therapist has been contacted to help with this process. (2) UTI (urinary tract infection) Current Visit: Yes Status: Acute Assessment and plan: Cultures pending. the cultures do not get set up until a agency operator takes them to [place] so there is long delay in getting the cultures back from when they are drawn. she is on vancomycin as she was intubated with a [facility] just last week. She also is on cefepime which her last urine culture was sensitive to she also is on Diflucan for the many yeast cells seen in the urine as well. She does have a [facility] catheter. adama gets more combative with shante care. difficult to do shante care so will leave the [facility] in for now because she gets very combative. Blood and urine Cultures are pending. she have a midline line iv in Qualifiers: Urinary tract infection type: acute cystitis Hematuria presence: with hematuria Qualified Code(s): N30.01 - Acute cystitis with hematuria (3) HTN (hypertension) Current Visit: Yes Status: Acute Assessment and plan: Her blood pressure have been increased. She initially came in hypotensive. That hypotension did respond well to IV fluids and now her bp is elevated. the metoprolol was just increased yesterday. will continue with that dose. her bp seem to get higher when she is more aggitated. Qualifiers: Hypertension type: essential hypertension Qualified Code(s): I10 - Essential (primary) hypertension (4) Mixed hyperlipidemia Current Visit: Yes Status: Acute Assessment and plan: she is on the substitute for her home pravastatin, but she is very restless. she has not tolerated simvastatin in the past will stop this (5) DM2 (diabetes mellitus, type 2) Current Visit: Yes Status: Acute Assessment and plan: She has had some elevated sugars with the Solu-Medrol. She is only on diet at home. We will check Accu-Cheks and sliding scale as needed. her sugars have been up again today Qualifiers: Diabetes mellitus termite treater helper insulin use: without termite treater helper use Diabetes mellitus complication status: without complication Qualified Code(s): E11.9 - Type 2 diabetes mellitus without complications (6) COPD (chronic obstructive pulmonary disease) Current Visit: Yes Status: Chronic Assessment and plan: sHe currently also has a COPD exacerbation she is on Solu-Medrol. dose decreased 2 days agoto try to help with her behaviors. she is back on oxygen. she has increased work of breathing continue duo nebs. She is on cefepime and vancomycin she was just recently intubated in the ICU. She does have a significant risk for resistant organisms, cx are pending Qualifiers: COPD type: COPD with acute exacerbation Qualified Code(s): J44.1 - Chronic obstructive pulmonary disease with (acute) exacerbation (7) Cognitive impairment Current Visit: Yes Status: Acute Assessment and plan: she has been combative. the depakote and the haldol seem to help. she is not as aggressive with hitting and swinging even with her broken elbow. family or sitter or staff have to be in the room with her to avoid her hurting herself or pulling iv etc (8) DVT prophylaxis Current Visit: Yes Status: Acute Assessment and plan: She is on Lovenox (9) Atrial fibrillation Current Visit: Yes Status: Chronic Assessment and plan: not Anticoagulated at home due to her fall risk. She did develop A. fib with RVR she was on a Cardizem drip that has been weaned. her po metoprolol dose was increased and the cardizem was weaned off. she did become tachy again and the metoprolol dose was increased again. she is tachy but stable Qualifiers: Atrial fibrillation type: unspecified Qualified Code(s): I48.91 - Unspecified atrial fibrillation (10) DNR (do not resuscitate) discussion Current Visit: Yes Status: Acute (11) Elbow fracture, right Current Visit: Yes Status: Acute Assessment and plan: She is currently in a splint there is a lot of significant bruising and edema. She is not cleared to have surgery to repair this. family wanted to remove splint if she became aggitated with it again. they know she is not cleared fo rsurgery. they are more interested in her comfort than in her function. if she wakes up again and wants it off will take it off and try an [place] wrap Qualifiers: Encounter type: subsequent encounter Fracture type: closed Fracture healing: with routine healing Qualified Code(s): S42.401D - Unspecified fracture of lower end of right humerus, subsequent encounter for fracture with routine healing (12) Atrial fibrillation with RVR Current Visit: Yes Status: Acute Assessment and plan: she is off the cardizem gtt and on increased metoprolol She is not antico agulated due to her frequent fall risk.discussed with family if she were to go in rvr again whether to restart the cardizem gtt. family agreed if she is uncomfortable or has symptoms to start but not to start if she did not have symptoms. (13) Altered mental status Current Visit: No Status: Acute Assessment and plan: Decreased alertness due to the influenza a infection as well as a UTI. We will avoid benzos and antipsychotics that she does not do well with this. she is currently on depakote and had to add haldol as she was hitting even with her fractured arm. She does have a history of becoming aggressive with her UTIs she has had a sitter and had family member stay with her to try to help keep her oriented. Qualifiers: Altered mental status type: unspecified Qualified Code(s): R41.82 - Altered mental status, unspecified - Subjective Interval history: she is currently resting but not really arousable. she will mumble.she does not answer questions appropriately. she did start to get labored resp and tachypnea.but now slowed resp and quieer. restarted her mucinex and her home me ds. but it took 45 min with her daughter may to get her metoprolol and haldol in her this am. tried to wean the steroids to help with her aggressive behaviors.she is not eating. she is declining. hada long conversation with the family about where to go from here. family does not want her to suffer - Constitutional Vitals: Temp Pulse Resp BP Pulse Ox 98.1 F 121 20 151/87 96 04/20/18 07:54 04/20/18 07:54 04/20/18 07:54 04/20/18 07:54 04/20/18 07:54 General appearance: Present: A&O X 0 (mumbling not really arousable). Absent: answers questions appropriately (sleeping easy to arouse) - Head Head exam: Present: atraumatic, normocephalic - Neck Neck exam general surgery: Present: supple, trachea midline. Absent: lymp hadenopathy - Respiratory Respiratory exam: Present: rhonchi (throughout but significantly improved), stridor (but much improved) - Cardiovascular Cardiovascular exam: Present: irregular rhythm, tachycardia - GI/Abdominal GI/Abdominal exam: Present: normal bowel sounds, soft, no peritoneal signs. Absent: guarding - Extremities Exam Extremities exam: Present: normal capillary refill, warm. Absent: mottling, pedal edema (but edema of the right hand with eccymosis, good cap rf) - Skin Skin exam: Present: dry, warm Internal Medicine: Result - Labs CBC & Chem 7: 04/19/18 09:08 04/19/18 09:08 Labs: Short CBC 04/19/18 Range/Units 09:08 WBC 8.8 D (4.3-11.1) K/mcL Hgb 9.4 L (11.5-15.4) g/dL Hct 29.5 L (35.3-44.9) % Plt Count 298 (140-400) K/mcL Neutrophils # 8.1 (1.6-8.9) K/mcL BMP 04/19/18 09:08 Sodium 134 L Potassium 4.1 Chloride 105 Carbon Dioxide 22 L BUN 21 Creatinine 0.81 Glucose 289 H Calcium 8.3 L - ABG Interpretation ABG results: ABG ABG pH 7.45 pH Units (7.32-7.45) 04/17/18 07:58 ABG pCO2 37 mmHg (35-45) 04/17/18 07:58 ABG pO2 217 mmHg (85-104) H 04/17/18 07:58 ABG O2 Saturation 100 % (95-98) H 04/17/18 07:58 PT/INR, D-dimer PT 15.3 Seconds (9.4-12.1) H 04/17/18 09:00 Consult Discharge Plan - Plan Referrals: Adelina Mckeon, [facility]GER [Primary Care Provider] -
[2018-04-20] MEDS: Oseltamivir Phosphate 30 MG CAPSULE PO SCH ×2 (09:32→21:41)
[2018-04-20] MEDS: Divalproex Sodium 125 MG CAPSULE PO SCH ×2 (09:32→21:41)
[2018-04-20] MEDS: Fluconazole 200 MG/100 ML 200 MG/100 ML BAG IVPB SCH (09:32)
[2018-04-20] MEDS: Insulin LISPRO 300 UNITS/3 ML VIAL SQ SCH ×4 (09:39→21:40)
[2018-04-20] MEDS: Fluticasone Propionate Nasal 50 MCG/SPRAY BOTTLE NS SCH (14:20)
[2018-04-20] MEDS: MORPHINE SUL Oral CONC 10 MG/0.5 ML ORAL.SYG SL PRN (21:42)
[2018-04-21] MEDS: Ipratropium/Albuterol Neb 3 ML IH SCH ×6 (01:00→19:17)
[2018-04-21] MEDS: MORPHINE SUL Oral CONC 10 MG/0.5 ML ORAL.SYG SL PRN ×3 (02:20→20:04)
[2018-04-21] MEDS: *HR* Enoxaparin 30 MG/0.3 ML SYRINGE SQ SCH (06:12)
[2018-04-21] MEDS: methylPREDNISolone 125 MG/2 ML VIAL IVP SCH ×2 (06:13→17:59)
[2018-04-21] MEDS: Cefepime HCl 2,000 MG in Water for inj. (sterile) 20 ML 20 ML IVP SCH ×2 (06:13→17:57)
[2018-04-21] MEDS: Metoprolol XL (24 HR) Succ 50 MG TAB.ER.24H PO SCH (08:28)
[2018-04-21] MEDS: Oseltamivir Phosphate 30 MG CAPSULE PO SCH ×2 (08:28→20:01)
[2018-04-21] MEDS: Divalproex Sodium 125 MG CAPSULE PO SCH ×2 (08:28→20:01)
[2018-04-21] MEDS: Fluconazole 200 MG/100 ML 200 MG/100 ML BAG IVPB SCH (08:29)
[2018-04-21] MEDS: (Cyclosporine [Restasis] 1 EACH) OP SCH ×2 (08:30→20:01)
[2018-04-21] MEDS: Fluticasone Propionate Nasal 50 MCG/SPRAY BOTTLE NS SCH (08:30)
[2018-04-21] MEDS: Insulin LISPRO 300 UNITS/3 ML VIAL SQ SCH ×4 (08:44→20:15)
[2018-04-21] MEDS ORDERED: Haloperidol Lactate 5 MG/ML VIAL IVP ONE (10:56)
[2018-04-21] MEDS ORDERED: *HR* Metoprolol 5 MG/5 ML VIAL IVP ONE (10:57)
--- NOTE | 2018-04-21 14:44 | Internal Med Progress Note ---
Date of Encounter: 04/21/18 Time of Encounter: 12:20 - Subjective Interval history: - Assessment and plan (1) Influenza A Current Visit: Yes Status: Acute Assessment and plan: she is back on the oxygen. She is using accessory muscles at times She is on Tamiflu l. She continues to get duo nebs Solu-Medrol.she is not stable for d/c. she no longer needs the bipap but her does have increased work of breathing. she is not stable for d/c she has been declining from a respiratory standpoint she is having slower respirations. She is on IV antibiotic. Family wanted to continue antibiotics until the cultures were back. Family present. Discussed if she became short of breath apneic whether we will put her on BiPAP again family did not want her put back on BiPAP. Discussed if she became uncomfortable or in pain what to do for pain family was okay with Roxanol orally. They would like her to be comfortable. There were also okay with Ativan if needed. O Haldol has been giving her relief. We will continue with the when necessary Haldol. Family is agreeable to this. Family is going to look into placement after this whether they do hospice at home versus hospice at an [facility]. Daughters are looking into benefits and social welfare administrator has been contacted to help with this process. (2) UTI (urinary tract infection) Current Visit: Yes Status: Acute Assessment and plan: Cultures pending. . She also is on cefepime which her last urine culture was sensitive to she also is on Diflucan for the many yeast cells seen in the urine as well. She does have a Gray catheter. No blood or sediment noted Blood and urine Cultures are pending. she have a midline line iv in Qualifiers: Urinary tract infection type: acute cystitis Hematuria presence: with hematuria Qualified Code(s): N30.01 - Acute cystitis with hematuria (3) HTN (hypertension) Current Visit: Yes Status: Acute Assessment and plan: Her blood pressure have been increased. She initially came in hypotensive. That hypotension did respond well to IV fluids and now her bp is elevated. the metoprolol was just increased yesterday. Started IV when necessary metoprolol today may not be absorbing the oral very well. Qualifiers: Hypertension type: essential hypertension Qualified Code(s): I10 - Essential (primary) hypertension (4) Mixed hyperlipidemia Current Visit: Yes Status: Acute Assessment and plan: she is on the substitute for her home pravastatin, but she is very restless. she has not tolerated simvastatin in the past will stop this (5) DM2 (diabetes mellitus, type 2) Current Visit: Yes Status: Acute Assessment and plan: She has had some elevated sugars with the Solu-Medrol. She is only on diet at home. We will check Accu-Cheks and sliding scale as needed. her sugars have been up again today Qualifiers: Diabetes mellitus senior care insulin use: without senior care use Diabetes mellitus complication status: without complication Qualified Code(s): E11.9 - Type 2 diabetes mellitus without complications (6) COPD (chronic obstructive pulmonary disease) Current Visit: Yes Status: Chronic Assessment and plan: sHe currently also has a COPD exacerbation she is on Solu-Medrol. dose decr eased 2 days agoto try to help with her behaviors. she is back on oxygen. she has increased work of breathing continue duo nebs. She is on cefepime and vancomycin she was just recently intubated in the ICU. She does have a significant risk for resistant organisms family does not want BiPAP or in tubation. Qualifiers: COPD type: COPD with acute exacerbation Qualified Code(s): J44.1 - Chronic obstructive pulmonary disease with (acute) exacerbation (7) Cognitive impairment Current Visit: Yes Status: Acute Assessment and plan: she has been combative. the depakote and the haldol seem to help severe dementia. she is not as aggressive with hitting and swinging even with her broken elbow. family or sitter or staff have to be in the room with her to avoid her hurting herself or pulling iv etc (8) DVT prophylaxis Current Visit: Yes Status: Acute Assessment and plan: She is on Lovenox (9) Atrial fibrillation Current Visit: Yes Status: Chronic Assessment and plan: not Anticoagulated at home due to her fall risk. She did develop A. fib with RV R she was on a Cardizem drip that has been weaned. her po metoprolol dose was increased and the cardizem was weaned off. she did become tachy again and the metoprolol dose was increased again. she is tachy but stable Qualifiers: Atrial fibrillation type: unspecified Qualified Code(s): I48.91 - Unspecified atrial fibrillation (10) DNR (do not resuscitate) discussion Current Visit: Yes Status: Acute (11) Elbow fracture, right Current Visit: Yes Status: Acute Assessment and plan: She is currently in a splint there is a lot of significant bruising and edema. She is not cleared to have surgery to repair this. family wanted to remove splint if she became aggitated with it again. they know she is not cleared fo rsurgery. they are more interested in her comfort than in her function. if she wakes up again and wants it off will take it off and try an [place] wrap Qualifiers: Encounter type: subsequent encounter Fracture type: closed Fracture healing: with routine healing Qualified Code(s): S42.401D - Unspecified fracture of lower end of right humerus, subsequent encounter for fracture with routine healing (12) Atrial fibrillation with RVR Current Visit: Yes Status: Acute Assessment and plan: she is off the cardizem gtt and on increased metoprolol She is not anticoagulated due to her frequent fall risk.discussed with family if she were to go in rvr again whether to restart the cardizem gtt. family agreed if she is uncomfortable or has symptoms to start but not to start if she did not have symptoms. (13) Altered mental status Current Visit: No Status: Acute Assessment and plan: Decreased alertness due to the influenza a infection as well as a UTI. We will avoid benzos and antipsychotics that she does not do well with this. she is currently on depakote and had to add haldol as she was hitting even with her fractured arm. She does have a history of becoming aggressive with her UTIs she has had a sitter and had family member stay with her to try to help keep her oriented. Qualifiers: Altered mental status type: unspecified Qualified Code(s): R41.82 - Altered mental status, unspecified - Subjective Interval history: Patient currently has pain fairly well controlled. She does open her eyes and make eye contact she verbalizes that she believes it is her time to go she says she is ready. She denies depression. Romana her daughter is at bedside. Earlier today when necessary IV beta tray was added which seems to be very effective. - EXAM General appearance: Present: Frail soft-spoken hypokinetic laying in bed - Head Head exam: Present: atraumatic, normocephalic - Neck Neck exam general surgery: Present: supple, trachea midline. Absent: lymphadenopathy - Respiratory Respiratory exam: Present: Occasional rhonchi - Cardiovascular Cardiovascular exam: Present: irregular rhythm, tachycardia - GI/Abdominal GI/Abdominal exam: Present: normal bowel sounds, soft, no peritoneal signs. Absent: guarding - Extremities Exam Extremities exam: Present: normal capillary refill, warm. Edema of the right hand is improved without splint patient does have a wrap on right elbow which she states is more comfortable - Skin Skin exam: Present:warm ecchymoses to the right forearm skin is then dry - Constitutional Vitals: Temp Pulse Resp BP Pulse Ox 98.2 F 102 20 167/117 99 04/21/18 14:27 04/21/18 14:27 04/21/18 14:27 04/21/18 14:27 04/21/18 14:27 General appearance: Present: A&O X 0 (mumbling not really arousable). Absent: answers questions appropriately (sleeping easy to arouse) Internal Medicine: Result - Labs CBC & Chem 7: 04/19/18 09:08 04/19/18 09:08 - ABG Interpretation ABG results: ABG ABG pH 7.45 pH Units (7.32-7.45) 04/17/18 07:58 ABG pCO2 37 mmHg (35-45) 04/17/18 07:58 ABG pO2 217 mmHg (85-104) H 04/17/18 07:58 ABG O2 Saturation 100 % (95-98) H 04/17/18 07:58 PT/INR, D-dimer PT 15.3 Seconds (9.4-12.1) H 04/17/18 09:00 Consult Discharge Plan - Plan Referrals: Adelina Mckeon, [facility] [Primary Care Provider] -
[2018-04-21] MEDS: *HR* Metoprolol 5 MG/5 ML VIAL IVP PRN (16:21)
[2018-04-21] MEDS: Haloperidol Lactate 5 MG/ML VIAL IVP PRN (21:36)
[2018-04-22] MEDS: Ipratropium/Albuterol Neb 3 ML IH SCH ×6 (01:19→19:40)
[2018-04-22] MEDS: MORPHINE SUL Oral CONC 10 MG/0.5 ML ORAL.SYG SL PRN ×4 (01:20→18:44)
[2018-04-22] MEDS: Cefepime HCl 2,000 MG in Water for inj. (sterile) 20 ML 20 ML IVP SCH ×2 (05:06→17:05)
[2018-04-22] MEDS: *HR* Enoxaparin 30 MG/0.3 ML SYRINGE SQ SCH (05:06)
[2018-04-22] MEDS: Haloperidol Lactate 5 MG/ML VIAL IVP PRN (05:07)
[2018-04-22] MEDS: methylPREDNISolone 125 MG/2 ML VIAL IVP SCH ×2 (05:07→17:06)
[2018-04-22 05:50] LABS: BUN/Creatinine Ratio 38 (6-26); Blood Urea Nitrogen 24 mg/dL (8-23); eGFR For Non-African Americans > 60 (> 60)
[2018-04-22] MEDS: Divalproex Sodium 125 MG CAPSULE PO SCH ×2 (07:33→21:10)
[2018-04-22] MEDS: *HR* Metoprolol 5 MG/5 ML VIAL IVP PRN ×3 (07:35→20:40)
[2018-04-22] MEDS: Fluticasone Propionate Nasal 50 MCG/SPRAY BOTTLE NS SCH (07:37)
[2018-04-22] MEDS: Insulin LISPRO 300 UNITS/3 ML VIAL SQ SCH ×4 (07:39→21:10)
[2018-04-22] MEDS: (Cyclosporine [Restasis] 1 EACH) OP SCH ×2 (07:40→21:10)
[2018-04-22] MEDS: Fluconazole 200 MG/100 ML 200 MG/100 ML BAG IVPB SCH (11:58)
--- NOTE | 2018-04-22 12:52 | Internal Med Progress Note ---
Date of Encounter: 04/22/18 Time of Encounter: 12:47 - Subjective Interval history: - Assessment and plan (1) Influenza A Current Visit: Yes Status: Acute Assessment and plan: she is back on the oxygen. She is using accessory muscles at times She was treated with Tamiflu . She continues to get duo nebs Solu-Medrol.she is not stable for d/c. she no longer needs the bipap but her does have increased work of breathing. she is not stable for d/c she has been declining from a respiratory standpoint she is having slower respirations. She is on IV antibiotic and antifungal per her primary attending physician. In the past she has used BiPAP . Per her attending physician and family, they do not want her put back on BiPAP should her condition decline. Discussed if she became uncomfortable or in pain what to do for pain family was okay with Roxanol orally. They would like her to be comfortable. There were also okay with Ativan if needed. Haldol has been giving her relief. We will continue with the when necessary Haldol. Family is agreeable to this. Family is going to look into placement after this whether they do hospice at home versus hospice at an [facility]. Daughters are looking into benefits and social insurance administrator has been contacted to help with this process. (2) UTI (urinary tract infection) Current Visit: Yes Status: Acute Assessment and plan: Cultures pending. . She also is on cefepime which her last urine culture was sensitive to she also is on Diflucan for the many yeast cells seen in the urine as well. She does have a Gray catheter. No blood or sediment noted Blood and urine Cultures are pending. she have a midline line iv in Qualifiers: Urinary tract infection type: acute cystitis Hematuria presence: with hematuria Qualified Code(s): N30.01 - Acute cystitis with hematuria (3) HTN (hypertension) Current Visit: Yes Status: Acute Assessment and plan: Her blood pressure have been increased. She initially came in hypotensive. That hypotension did respond well to IV fluids and now her bp is elevated. the metoprolol was just increased yesterday. Started IV when necessary metoprolol today may not be absorbing the oral very well. She is a very difficult IV access . Qualifiers: Hypertension type: essential hypertension Qualified Code(s): I10 - Essential (primary) hypertension (4) Mixed hyperlipidemia Current Visit: Yes Status: Acute Assessment and plan: she is on the substitute for her home pravastatin, but she is very restless. she has not tolerated simvastatin in the past will stop this (5) DM2 (diabetes mellitus, type 2) Current Visit: Yes Status: Acute Assessment and plan: She has had some elevated sugars with the Solu-Medrol. She is only on diet at home. We will check Accu-Cheks and sliding scale as needed. 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 Her breathing is slightly calmer today but she is also having some pauses to her breathing when she sleeps. Steroid dose decreased 2 days ago to try to help with her behaviors. she is back on oxygen. she has increased work of breathing continue duo nebs. She is on cefepime and vancomycin she was just recently intubated in the ICU. She does have a significant risk for resistant organisms family does not want BiPAP or intubation. Qualifiers: COPD type: COPD with acute exacerbation Qualified Code(s): J44.1 - Chronic obstructive pulmonary disease with (acute) exacerbation (7) Cognitive impairment Current Visit: Yes Status: Acute Assessment and plan: She is calmer today and pleasant Her other daughter is visiting today in past she has been combative. the depakote and the haldol seem to help severe dementia. she is not as aggressive with hitting and swinging even with her broken elbow. family or sitter or staff have to be in the room with her to avoid her hurting herself or pulling iv etc (8) DVT prophylaxis Current Visit: Yes Status: Acute Assessment and plan: She is on Lovenox (9) Atrial fibrillation Current Visit: Yes Status: Chronic Assessment and plan: not Anticoagulated at home due to her fall risk. She did develop A. fib with RVR she was on a Cardizem drip that has been weaned. her po metoprolol dose was increased and the cardizem was weaned off. she did become tachy again and the metoprolol dose was increased again. she is tachy but stable Qualifiers: Atrial fibrillation type: unspecified Qualified Code(s): I48.91 - Unspecified atrial fibrillation (10) DNR (do not resuscitate) discussion Current Visit: Yes Status: Acute (11) Elbow fracture, right Current Visit: Yes Status: Acute Assessment and plan: She is currently in a splint there is a lot of significant bruising and edema. She is not cleared to have surgery to repair this. family wanted to remove splint if she became aggitated with it again. they know she is not cleared fo rsurgery. they are more interested in her comfort than in her function. if she wakes up again and wants it off will take it off and try an [place] wrap Qualifiers: Encounter type: subsequent encounter Fracture type: closed Fracture healing: with routine healing Qualified Code(s): S42.401D - Unspecified fracture of lower end of right humerus, subsequent encounter for fracture with routine healing (12) Atrial fibrillation with RVR Current Visit: Yes Status: Acute Assessment and plan: she is off the cardizem gtt and on increased metoprolol She is not anticoagulated due to her frequent fall risk.discussed with family if she were to go in rvr again whether to restart the cardizem gtt. family agreed if she is uncomfortable or has symptoms to start but not to start if she did not have symptoms. (13) Altered mental status Current Visit: No Status: Acute Assessment and plan: Decreased alertness due to the influenza a infection as well as a UTI. We will avoid benzos and antipsychotics that she does not do well with this. she is currently on depakote and had to add haldol as she was hitting even with her fractured arm. She does have a history of becoming aggressive with her UTIs she has had a sitter and had family member stay with her to try to help keep her oriented. Qualifiers: Altered mental status type: unspecified Qualified Code(s): R41.82 - Altered mental status, unspecified - Subjective Interval history: Patient currently has pain fairly well controlled. She does open her eyes and make eye contact she verbalizes that she believes it is her time to go she says she is ready. She denies depression. Romana her daughter is at bedside. Earlier today when necessary IV beta tray was added which seems to be very effective. - EXAM General appearance: Present: Frail soft-spoken hypokinetic laying in bed appears better eye contact today - Head Head exam: Present: atraumatic, normocephalic - Neck Neck exam general surgery: Present: supple, trachea midline. Absent: lymphadenopathy - Respiratory Respiratory exam: Present: Occasional rhonchi - Cardiovascular Cardiovascular exam: Present: irregular rhythm, tachycardia - GI/Abdominal GI/Abdominal exam: Present: normal bowel sounds, soft, no peritoneal signs. Absent: guarding - Extremities Exam Extremities exam: Present: normal capillary refill, warm. Edema of the right hand is improved without splint patient does have a wrap on right elbow which she states is more comfortable - Skin Skin exam: Present:warm ecchymoses to the right forearm skin is then dry - Constitutional Vitals: Temp Pulse Resp BP Pulse Ox 98.8 F 129 22 118/64 98 04/22/18 07:31 04/22/18 07:31 04/22/18 07:31 04/22/18 10:36 04/22/18 07:31 General appearance: Present: A&O X 0 (mumbling not really arousable). Absent: answers questions appropriately (sleeping easy to arouse) Internal Medicine: Result - Labs CBC & Chem 7: 04/19/18 09:08 04/22/18 05:15 Labs: BMP 04/22/18 05:15 BUN 24 H Creatinine 0.64 - ABG Interpretation ABG results: ABG ABG pH 7.45 pH Units (7.32-7.45) 04/17/18 07:58 ABG pCO2 37 mmHg (35-45) 04/17/18 07:58 ABG pO2 217 mmHg (85-104) H 04/17/18 07:58 ABG O2 Saturation 100 % (95-98) H 04/17/18 07:58 PT/INR, D-dimer PT 15.3 Seconds (9.4-12.1) H 04/17/18 09:00 Consult Discharge Plan - Plan Referrals: Adelina Mckeon, [employer] [Primary Care Provider] -
[2018-04-22] MEDS: Haloperidol Lactate 5 MG/ML VIAL IM PRN (23:05)
[2018-04-23] MEDS: MORPHINE SUL Oral CONC 10 MG/0.5 ML ORAL.SYG SL PRN ×5 (00:42→15:40)
[2018-04-23] MEDS: Ipratropium/Albuterol Neb 3 ML IH SCH ×3 (01:51→12:19)
[2018-04-23] MEDS: Cefepime HCl 2,000 MG in Water for inj. (sterile) 20 ML 20 ML IVP SCH (04:29)
[2018-04-23] MEDS: methylPREDNISolone 125 MG/2 ML VIAL IVP SCH (04:29)
[2018-04-23] MEDS: *HR* Metoprolol 5 MG/5 ML VIAL IVP PRN (06:30)
[2018-04-23] MEDS: Haloperidol Lactate 5 MG/ML VIAL IM PRN ×2 (06:31→10:34)
[2018-04-23 06:50] VITALS: BP 194/86
[2018-04-23] MEDS ORDERED: *HR* Enoxaparin 40 MG/0.4 ML SYRINGE SQ SCH (07:00)
--- NOTE | 2018-04-23 08:47 | Discharge Summary ---
Date of Encounter: 04/23/18 Time of Encounter: 08:38 - Discharge Diagnosis (1) Influenza A Priority: Primary Status: Acute Comments: sHe presented to the emergency room from home with decreased mental status respiratory distress. While in the emergency room she was placed on BiPAP she was unresponsive. Positive for influenza A. She eventually was weaned off the BiPAP the first day and weaned to 2 L. She was on room air for a short period of time and ended up back on 2 L nasal cannula did she did complete a full course of renal dose Tamiflu. She was in respiratory isolation will she was here but now she has been here 7 days. She has not really gotten better she is not really more alert. Family elected to go ahead and withdrawal care and send her to [facility] and care with hospice. She is currently comfortable she has had several doses of Roxanol. This is complicated by the fact that she was just recently in the ICU for a aspiration pneumonia. She did complete a full course of antibiotics for that. She did have blood cultures drawn that did not grow anything. She did remain on Vanco cefepime. (2) UTI (urinary tract infection) Priority: Secondary Status: Acute Comments: She does have an indwelling Gray. We left that and for comfort. She had a recent urine that grew bacteria sensitive to cefepime she remained on that. Repeat urine culture did not grow any bacteria but did grow yeast. She was on Diflucan cefepime and vancomycin as she had been intubated in the ICU and had a Gray catheter. Blood cultures were negative she completed a full course Qualifiers: Urinary tract infection type: acute cystitis Hematuria presence: with hematuria Qualified Code(s): N30.01 - Acute cystitis with hematuria (3) HTN (hypertension) Priority: Secondary Status: Acute Comments: Upon arrival she was hypotensive that did respond to IV fluids. She did get her home dose metoprolol but because her A. fib was not rate controlled that was increased several times. Last 24 hours we have been able to get her alert enough to take the metoprolol. Qualifiers: Hypertension type: essential hypertension Qualified Code(s): I10 - Essential (primary) hypertension (4) Mixed hyperlipidemia Priority: Secondary Status: Acute Comments: She had a statin for just a few days while she was here but will no longer continue giving her the statin (5) DM2 (diabetes mellitus, type 2) Priority: Secondary Status: Acute Comments: Is not on any medication at home she did have some elevated blood sugars here she did occasionally get some sliding scale. 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 Qualifiers: COPD type: COPD with acute exacerbation Qualified Code(s): J44.1 - Chronic obstructive pulmonary disease with (acute) exacerbation (7) Cognitive impairment Priority: Secondary Status: Acute Comments: His but a rather significant problem for her she has severe cognitive decline she took Exelon at home. Several days were unable to get oral medicines in her. We did eventually have to give her some Haldol. She had a sitter most of the time except for the past few days as she was getting very aggressive she was swinging with her broken arm. That has definitely come down with the Haldol with morphine and with the progression of her illness. At this point in time we will see her recovering. She has been getting less alert. She is comfortable. Family has elected to go ahead and send her to her nursing care with hospice. (8) DVT prophylaxis Priority: Secondary Status: Acute Comments: Is on Lovenox will she was here (9) Atrial fibrillation Priority: Secondary Status: Chronic Comments: She did develop A. fib with RVR she was on a Cardizem drip her metoprolol oral doses increase in the Cardizem drip was weaned several days ago discussed the family whether to restart it family said that unless she was symptomatic meaning if she had chest pain or palpitations or shortness of breath we would restart Cardizem and in absence of the symptoms we would not she has been tachycardic we have not started the Cardizem drip. It is difficult to get her by mouth medicine to get her by mouth dose of metoprolol. [facility] she is not anti- coagulated due to her very significant fall risk she falls and has frequent fractures. Qualifiers: Atrial fibrillation type: unspecified Qualified Code(s): I48.91 - Unspecified atrial fibrillation (10) DNR (do not resuscitate) discussion Priority: Secondary Status: Acute Comments: Family is electing to send her to heart and care with hospice we will change her CODE STATUS to DNR CC (11) Elbow fracture, right Priority: Secondary Status: Acute Comments: sHe was supposed undergo surgery for this last Monday. She was not cleared to the influenza a. She is not recovering she was in a splint this was very uncomfortable for her since she is going to be a hospice patient we did says she did take it off she had a lot of edema in that hand which has definitely improved with the removal of the splint. Getting morphine for pain for this and seems to be comfortable this morning she did have several days where it was giving her significant discomfort and she was flailing around with it Qualifiers: Encounter type: subsequent encounter Fracture type: closed Fracture healing: with routine healing Qualified Code(s): S42.401D - Unspecified fracture of lower end of right humerus, subsequent encounter for fracture with routine healing (12) Atrial fibrillation with RVR Priority: Secondary Status: Acute Comments: Did develop A. fib with RVR and was on Cardizem drip. That was stopped. metoprolol dose was increased but for the last several days have not been able to get her metoprolol and her heart rate has increased she has remained asymptomatic from the standpoint them elected not to restart the Cardizem drip. (13) Altered mental status Priority: Secondary Status: Acute Comments: She has pretty significant cognitive decline and dementia at baseline she was on Exelon for this. But we have been able take get her to swallow this here recently. She did receive a couple doses of Haldol 1-2 doses a day that did help with her very significant behavior issues she had a broken elbow when she was swinging at people she is very strong she was climbing out of bed on she is getting pretty aggressive. Family wanted something started to keep her from doing this. She had Seroquel in the past she did not tolerate it well family was very against that. We did give her a couple doses of Haldol which did seem to clear her mind a little bit and calm her down and she was not aggressive. Sitter stay with her mom most of the time she was here except for the last couple of days she has not really been alert enough to be aggressive and swinging. And she has only had 1 dose of Haldol in the past 24 hours. Qualifiers: Altered mental status type: unspecified Qualified Code(s): R41.82 - Altered mental status, unspecified Hospital course: Ms. Alfonso is a 87 year old female Who presented to the emergency room for influenza A. After she had recently been intubated for an aspiration pneumonia. She also had a UTI. Blood cultures did not grow anything urine cultures only grew yeast. She was on vancomycin and cefepime and Diflucan. She initially was on BiPAP when she came into the emergency room she got weaned to room air for a short period of time with back on 2 L now she has physically declined she is not really alert anymore. Family has elected to change her over to hospice care. She will be sent to [facility] with a hospice consult. Discharge discussed with: family, nurse, social work, principal consultant (will send to [facility] and care under the care of Dr. Cid case discussed with her) - Time Spent with Patient Total time spent providing and/or coordinating discharge services: - Discharge Medications Prescriptions: New Ipratropium/Albuterol Neb [Duoneb] 3 ml IH [id number] inhsol MORPHINE SUL Oral CONC [Roxanol Oral Conc] 5 mg SL Q4HR PRN 7 Days #30 ml PRN Reason: Analgesia Haloperidol Lactate [Haldol] 3 mg IM Q6HR PRN vial PRN Reason: Anxiety LORazepam Oral Conc [Ativan Oral Conc] 1 mg PO Q6HR PRN 7 Days #30 mls PRN Reason: Agitation Cefepime HCl [Maxipime] 2,000 mg IVP Q12HR vial Oseltamivir Phosphate [Tamiflu] 30 mg PO BID capsule Vancomycin [Vancocin] 1,500 mg IVPB Q24H iv.soln Vancomycin [Vancocin] 1,500 mg IVPB Q24H iv.soln Discontinued Rivastigmine Tartrate (oral) [Exelon] 1.5 mg PO BID Escitalopram [Lexapro] 10 mg PO DAILY Fluticasone Propionate Nasal [Flonase] 100 mcg NS DAILY Cyclosporine [Restasis] 1 each OP BID Docusate Sodium [Dok] 100 mg PO HS Metoprolol XL (24 HR) Succ [Toprol Xl] 50 mg PO DAILY Pantoprazole Sodium [Protonix] 20 mg PO DAILY Guaifenesin [Cough Syrup] 100 mg PO Q4H PRN PRN Reason: Cough Cranberry 400 mg PO DAILY Pravastatin Sodium [Pravachol] 20 mg PO HS Home Medications: Cefepime HCl [Maxipime] 2,000 mg IVP Q12HR vial 04/23/18 [Rx] Haloperidol Lactate [Haldol] 3 mg IM Q6HR PRN vial 04/23/18 [Rx] Ipratropium/Albuterol Neb [Duoneb] 3 ml IH [id number] inhsol 04/23/18 [Rx] LORazepam Oral Conc [Ativan Oral Conc] 1 mg PO Q6HR PRN 7 Days #30 mls 04/23/18 [Rx] MORPHINE SUL Oral CONC [Roxanol Oral Conc] 5 mg SL Q4HR PRN 7 Days #30 ml 04/23/18 [Rx] Oseltamivir Phosphate [Tamiflu] 30 mg PO BID capsule 04/23/18 [Rx] Vancomycin [Vancocin] 1,500 mg IVPB Q24H iv.soln 04/23/18 [Rx] Vancomycin [Vancocin] 1,500 mg IVPB Q24H iv.soln 04/23/18 [Rx] Allergies/Adverse Reactions: Allergy/AdvReac Type Severity Reaction Status Date / Time alcohol Allergy Swelling Verified 04/17/18 06:57 of Lip/Tongue/Throat ciprofloxacin [From Cipro] Allergy Hives Verified 04/17/18 06:57 morphine Allergy Rash Verified 04/17/18 06:57 nitrofurantoin Allergy Confusion Verified 04/17/18 06:57 [From Macrobid] Penicillins Allergy Anaphylaxis Verified 04/17/18 06:57 olanzapine [From Zyprexa] AdvReac Irritable Verified 04/17/18 06:57 Date of admission: 04/19/18 18:07 Primary care physician: Adelina Mckeon CNP Consults: 04/17/18 17:59 Consult to Speech Therapy [CONS] Routine Comment: Evaluate, develop and implement POC Reason for Consult: AMS and recent history of aspiration PN Call Completed: Yes - Constitutional Vitals: Temp Pulse Resp BP Pulse Ox 97.9 F 131 20 194/86 92 04/23/18 06:49 04/23/18 06:49 04/23/18 07:11 04/23/18 06:49 04/23/18 07:11 General appearance: Present: A&O X 0 (mumbling not really arousable), no acute distress. Absent: answers questions appropriately (sleeping easy to arouse) - Head Head exam: Present: atraumatic, normocephalic - Neck Neck exam general surgery: Present: trachea midline - Respiratory Respiratory exam: Present: CTAB (much improved today) - Cardiovascular Cardiovascular exam: Present: irregular rhythm, tachycardia - GI/Abdominal GI/Abdominal exam: Present: normal bowel sounds, soft, no peritoneal signs. Absent: distended, guarding, tenderness - Extremities Exam Extremities exam: Present: normal capillary refill (splint off), warm. Absent: pedal edema (left hand much improved) - Skin Skin exam: Present: dry, warm. Absent: rash - Patient Status Disposition: Hospice - Medical Facility Condition: Serious Functional capacity at discharge: bed bound Overall status at discharge: patient is not back to baseline - Discharge Instructions Follow Up With: Adelina Mckeon, ARCADE TECHNICIAN [Primary Care Provider] - Forms: ED Satisfaction Letter - Diet and Activity Activity: as per physical therapy Diet: advance to your usual diet, other (as tolerated)
--- NOTE | 2018-04-23 10:01 | Physician Discharge Referral ---
ExtendedCare Referral Info Transfer To: [facility] and Care Provider in Charge: davide Institutional Level of Care: Skilled - Diagnosis (1) Influenza A Priority: Primary Status: Acute (2) UTI (urinary tract infection) Priority: Secondary Status: Acute (3) HTN (hypertension) Priority: Secondary Status: Acute (4) Mixed hyperlipidemia Priority: Secondary Status: Acute (5) DM2 (diabetes mellitus, type 2) Priority: Secondary Status: Acute (6) COPD (chronic obstructive pulmonary disease) Priority: Secondary Status: Chronic (7) Cognitive impairment Priority: Secondary Status: Acute (8) DVT prophylaxis Priority: Secondary Status: Acute (9) Atrial fibrillation Priority: Secondary Status: Chronic (10) DNR (do not resuscitate) discussion Priority: Secondary Status: Acute (11) Elbow fracture, right Priority: Secondary Status: Acute (12) Atrial fibrillation with RVR Priority: Secondary Status: Acute (13) Altered mental status Priority: Secondary Status: Acute Expected Duration of Placement: lifetime Prognosis: Poor Aware of Diagnosis: Family (patient unable to comprehend) Aware of Prognosis: Family - Transfer Medications Prescriptions: MORPHINE SUL Oral CONC [Roxanol Oral Conc] 5 mg SL Q4HR PRN 7 Days #30 ml PRN Reason: Analgesia LORazepam Oral Conc [Ativan Oral Conc] 1 mg PO Q6HR PRN 7 Days #30 mls PRN Reason: Agitation Home Medications: Cefepime HCl [Maxipime] 2,000 mg IVP Q12HR vial 04/23/18 [Rx] Haloperidol Lactate [Haldol] 3 mg IM Q6HR PRN vial 04/23/18 [Rx] Ipratropium/Albuterol Neb [Duoneb] 3 ml IH [id number] inhsol 04/23/18 [Rx] LORazepam Oral Conc [Ativan Oral Conc] 1 mg PO Q6HR PRN 7 Days #30 mls 04/23/18 [Rx] MORPHINE SUL Oral CONC [Roxanol Oral Conc] 5 mg SL Q4HR PRN 7 Days #30 ml 04/23/18 [Rx] Oseltamivir Phosphate [Tamiflu] 30 mg PO BID capsule 04/23/18 [Rx] Vancomycin [Vancocin] 1,500 mg IVPB Q24H iv.soln 04/23/18 [Rx] Vancomycin [Vancocin] 1,500 mg IVPB Q24H iv.soln 04/23/18 [Rx] Allergies/Adverse Reactions: Allergy/AdvReac Type Severity Reaction Status Date / Time alcohol Allergy Swelling Verified 04/17/18 06:57 of Lip/Tongue/Throat ciprofloxacin [From Cipro] Allergy Hives Verified 04/17/18 06:57 morphine Allergy Rash Verified 04/17/18 06:57 nitrofurantoin Allergy Confusion Verified 04/17/18 06:57 [From Macrobid] Penicillins Allergy Anaphylaxis Verified 04/17/18 06:57 olanzapine [From Zyprexa] AdvReac Irritable Verified 04/17/18 06:57 - Respiratory Orders Oxygen / L per min (2) Smoking Cessation: Smoking cessation has been advised. For more information, call the [place] Tobacco Quit Line at 0-977-NBBG-NOW. - Lab Orders Lab Orders: 2 Step Mantoux Test per State regulation - Ancillary Orders May use pressure relief devices daily prn, May go on CARRIE w/family/respon libertarian w/meds at nurse discretion PRN, May have alcoholic beverages, May consult with Dentist, Tool Programmer, Felter Tennis Balls PRN - Advance Directives Power of Model Home Sales Greeter for Health Care: Yes (may) Code Status: DNR-Comfort Care - Mobility Orders Ambulate - Rehabiliation Orders Rehab Potential: Fair - Treatments Skin tear care topically daily PRN per policy, May check for fecal impaction rectally daily PRN, Fleet enema rectally every other day PRN cleansing purposes - Diet Orders Mechanical Soft CERTIFICATION: I certify that the transfer of the above named patient to an Extended Care Facility is necessary for the continuing treatment of the diagnosis listed. The above information is true and accurate reflection of patient's current condition. she is terminally ill. she has combative behaviors and is a fall risk. she has cognitive decline and dementia. she was intubated 2 wks prior due to asp pneumonia and now has ifluenza a and a uti. she is deconditioned and has not been out of bed and not ambulating. she has a right elbow fracture. Confidential - Redisclosure prohibited without a patient's written consent.
[2018-04-23] MEDS: Divalproex Sodium 125 MG CAPSULE PO SCH (10:16)
[2018-04-23] MEDS: Insulin LISPRO 300 UNITS/3 ML VIAL SQ SCH ×2 (10:16→11:41)
[2018-04-23] MEDS: Fluconazole 200 MG/100 ML 200 MG/100 ML BAG IVPB SCH (10:17)
[2018-04-23] MEDS: Fluticasone Propionate Nasal 50 MCG/SPRAY BOTTLE NS SCH (10:17)
[2018-04-23] MEDS: (Cyclosporine [Restasis] 1 EACH) OP SCH (10:17)
[2018-04-23] MEDS ORDERED: Aminoglycoside Consult 1 EACH MC ONE (16:00)
== END 2018-04-23 16:01 | disposition hospice, inpatient (51) | DRG 194 ==
LOC: INPGRE 06:40 → EMEROOGRE 06:40 → INPGRE 11:32
PROVIDERS: ADMIT Family Medicine; ATTEND Family Medicine